=== PATIENT | female | born 1955 ===

== ENCOUNTER 2021-12-27 07:49 | Day surgery (SDC) | payer MEDICARE, OTHER, MEDICAID, SELFPAY ==
[2021-12-21 13:43] VITALS: BMI 34.7
--- NOTE | 2021-12-24 12:57 | P.CONAN_ITS ---
Documented by User: Lupe Guzman NP 12/24/21 12:58 HPI - Anesthesia Eval Consult details Narrative: 66yo F for Right Cataract Extraction IOL Insertion PCP cleared No previous cataract on record [facility] Past Medical History Medical History (Updated 12/27/21 @ 09:00 by Majo Anthony RN) Adrenal adenoma Arthritis Bilateral cataracts Bursitis Chronic pain syndrome CTS (carpal tunnel syndrome) Diabetes DJD (degenerative joint disease) Essential tremor GERD (gastroesophageal reflux disease) Heartburn Hyperlipidemia Hypertension Meralgia paresthetica of left side Obesity BETHANIE on CPAP RLS (restless legs syndrome) Thyroid nodule Tobacco use Wears hearing aid Surgical History Surgical History History of History of esophagogastroduodenoscopy (EGD) Hx of colonoscopy Hx of laparoscopic gastric banding Hx of laparoscopic gastric banding Social History Social History Patient Tobacco Use Status: Current everyday Tobacco user Tobacco use type: Cigarette Cigarettes Per Day: 7 Use of substances other than those prescribed or required for medical reasons: No Are you DNR?: No Advance Directives: No Advance Directives Information Provided: Yes Meds Allergies Allergy/AdvReac Type Severity Reaction Status Date / Time No Known Allergies Allergy Verified 12/27/21 08:40 Home Medications Medication Instructions Recorded Confirmed Last Taken Type Trulicity 12/20/21 12/20/21 Unknown History atorvastatin 40 mg tablet 40 mg PO BEDTIME 12/20/21 12/20/21 Unknown History bupropion HCl 300 mg 24 hr tablet, 300 mg PO QAM 12/20/21 12/20/21 Unknown History extended release insulin aspart U-100 100 unit/mL unit subcut TID 12/20/21 Unknown History (3 mL) subcutaneous pen (Novolog Flexpen U-100 Insulin aspart) insulin glargine 100 unit/mL (3 unit subcut QPM 12/20/21 Unknown History mL) subcutaneous pen (Basaglar KwikPen U-100 Insulin) meloxicam 7.5 mg tablet 7.5 mg PO DAILY 12/20/21 12/20/21 Unknown History omeprazole 40 mg capsule,delayed 40 mg PO DAILY 12/20/21 12/20/21 Unknown History release pregabalin 150 mg capsule 150 mg PO BID 12/20/21 12/20/21 Unknown History quetiapine 25 mg tablet 25 mg PO DAILY 12/20/21 12/20/21 Unknown History ropinirole 1 mg tablet 1 mg PO BEDTIME 12/20/21 12/20/21 Unknown History Exam Exam Date and Time: December 24, 2021 1257 Height,Weight and Vital Signs: Height 5 ft 6.14 in Weight 98 kg Assessment and Plan Assessment Anesthesia Assessment: Chart Reviewed Documented by User: Paige Venegas MD 12/27/21 09:11 [facility] Past Medical History Medical History (Updated 12/27/21 @ 09:00 by Majo Anthony RN) Adrenal adenoma Arthritis Bilateral cataracts Bursitis Chronic pain syndrome CTS (carpal tunnel syndrome) Diabetes DJD (degenerative joint disease) Essential tremor GERD (gastroesophageal reflux disease) Heartburn Hyperlipidemia Hypertension Meralgia paresthetica of left side Obesity BETHANIE on CPAP RLS (restless legs syndrome) Thyroid nodule Tobacco use Wears hearing aid Functional capacity: independent ambulation Patient : No Family History Family history of problems with anesthesia: No Surgical History Surgical History History of History of esophagogastroduodenoscopy (EGD) Hx of colonoscopy Hx of laparoscopic gastric banding Hx of laparoscopic gastric banding History of Problems with Anesthesia: No Social History Social History Patient Tobacco Use Status: Current everyday Tobacco user Tobacco use type: Cigarette Cigarettes Per Day: 7 Use of substances other than those prescribed or required for medical reasons: No Are you DNR?: No Advance Directives: No Advance Directives Information Provided: Yes Meds Allergies Allergy/AdvReac Type Severity Reaction Status Date / Time No Known Allergies Allergy Verified 12/27/21 08:40 Home Medications Medication Instructions Recorded Confirmed Last Taken Type Trulicity 12/20/21 12/20/21 Unknown History atorvastatin 40 mg tablet 40 mg PO BEDTIME 12/20/21 12/20/21 Unknown History bupropion HCl 300 mg 24 hr tablet, 300 mg PO QAM 12/20/21 12/20/21 Unknown History extended release insulin aspart U-100 100 unit/mL unit subcut TID 12/20/21 Unknown History (3 mL) subcutaneous pen (Novolog Flexpen U-100 Insulin aspart) insulin glargine 100 unit/mL (3 unit subcut QPM 12/20/21 Unknown History mL) subcutaneous pen (Basaglar KwikPen U-100 Insulin) meloxicam 7.5 mg tablet 7.5 mg PO DAILY 12/20/21 12/20/21 Unknown History omeprazole 40 mg capsule,delayed 40 mg PO DAILY 12/20/21 12/20/21 Unknown History release pregabalin 150 mg capsule 150 mg PO BID 12/20/21 12/20/21 Unknown History quetiapine 25 mg tablet 25 mg PO DAILY 12/20/21 12/20/21 Unknown History ropinirole 1 mg tablet 1 mg PO BEDTIME 12/20/21 12/20/21 Unknown History Exam Airway Mallampati Class: II TM Dist: >3cm Neck ROM: Full Heart: RRR Lungs: CTA Assessment and Plan Final Anesthetic Review Family History of Problems with Anesthesia: No History of Problems with Anesthesia: No ASA Class: II Final Preanesthetic Review: No Changes in Pt Med Stat, Meds/Allgs Chart Reviewed, Consent Obtained/Reviewed and Anes Risks/Benef Reviewed Patient Risk: Low Procedure Risk: Low Anesthetic Plan Anesthetic Plan: MAC: Disposition: Standard PACU
[2021-12-27 08:47] VITALS: BP 137/63; PULSE 62; RESP 16; TEMP 36.1; O2SAT 99
[2021-12-27] MEDS: Tetracaine HCl/PF 0.5% Oph Sol 4 ML DROPS 1 DROP EYE-RIGHT (08:47)
[2021-12-27 08:48] LABS: Glucose, Whole Blood 133 mg/dL (60-115)
[2021-12-27] MEDS: Cyclopentolate 1 % Ophth Sol 2 ML DRPBTL 1 DROP EYE-RIGHT ×3 (08:50→09:04)
[2021-12-27] MEDS: Tropicamide 1 % Ophth Sol 3 ML BTL 1 DROP EYE-RIGHT ×3 (08:52→09:07)
[2021-12-27] MEDS: Phenylephrine HCL 2.5% Oph SoL 2 ML BOTTLE 1 DROP EYE-RIGHT ×3 (08:54→09:09)
--- NOTE | 2021-12-27 09:03 | HO.PNOPHT ---
Ophthalmology Procedure Procedure Date of Service: 12/27/21 Ophthalmology Viscoelastic: Healangel [place] Dual Pack Pro Ophthalmology Lenses: TECNIS [id number] (19.5) Procedure Notes: PREOPERATIVE DIAGNOSIS: Decreased visual acuity right eye secondary to cataract POSTOPERATIVE DIAGNOSIS: Same PROCEDURE: Right cataract extraction with intraocular lens insertion SURGEON: Robin Jolly M.D. ANESTHESIA: Topical/MAC ESTIMATED BLOOD LOSS: None COMPLICATIONS: None After obtaining informed consent, the patient was brought to the operating room suite and placed in the supine position. After adequate sedation per anesthesia, topical drops of Tetracaine were given to the right eye. The eye was then prepped and draped in the usual sterile fashion. The operating room microscope was then positioned over the operative eye and a lid speculum placed. A paracentesis was created. Viscoelastic was then instilled into the anterior chamber. A three plane incision was then created temporally, utilizing a 2.85 mm keratome. Capsulotomy forceps were then utilized to create a circular tear capsulotomy. Hydrodissection and hydrodelineation were carried out until adequate mobilization of the nucleus occurred. Phacoemulsification was then utilized to remove the dense central nucleus followed by removal of the cortical material utilizing the automated aspiration irrigation unit. Viscoelastic was instilled into the posterior capsular bag followed by placement of a posterior chamber intraocular lens without difficulty. The residual Viscoelastic was then removed utilizing the automated IA machine. The wound was checked and found to be watertight. The patient tolerated the procedure well and the lid speculum was removed. Intracameral injection of Vigamox 0.1 mL followed by a subtenon injection of Kenalog-40 0.2 mL were administered. The patient will be seen in the a.m.
[2021-12-27] MEDS: Lactated Ringers 500 ML 50 ML IV (09:11)
--- NOTE | 2021-12-27 10:55 | P.CONAN_ITS ---
[facility] Past Medical History Medical History (Updated 12/27/21 @ 09:00 by Majo Anthony RN) Adrenal adenoma Arthritis Bilateral cataracts Bursitis Chronic pain syndrome CTS (carpal tunnel syndrome) Diabetes DJD (degenerative joint disease) Essential tremor GERD (gastroesophageal reflux disease) Heartburn Hyperlipidemia Hypertension Meralgia paresthetica of left side Obesity BETHANIE on CPAP RLS (restless legs syndrome) Thyroid nodule Tobacco use Wears hearing aid Functional capacity: independent ambulation Patient : No Family History Family history of problems with anesthesia: No Surgical History Surgical History History of History of esophagogastroduodenoscopy (EGD) Hx of colonoscopy Hx of laparoscopic gastric banding Hx of laparoscopic gastric banding History of Problems with Anesthesia: No Social History Social History Patient Tobacco Use Status: Current everyday Tobacco user Tobacco use type: Cigarette Cigarettes Per Day: 7 Use of substances other than those prescribed or required for medical reasons: No Are you DNR?: No Advance Directives: No Advance Directives Information Provided: Yes Patient : No Meds Allergies Allergy/AdvReac Type Severity Reaction Status Date / Time No Known Allergies Allergy Verified 12/27/21 08:40 Active Medications: Current Medications Albuterol Sulfate (Albuterol Sulfate (0.083%) 2.5 Mg/3 Ml Vial.Neb) 2.5 mg INHALE ONCE PRN PRN Reason: Shortness of Breath/Wheezing Lactated Ringer's (Lr) 500 mls @ 50 mls/hr IV .Q10H TRISHA Stop: 12/27/21 18:44 Last Admin: 12/27/21 09:11 Dose: 50 mls/hr Povidone Iodine (Povidone Iodine 5 % Ophth Soln 30 Ml Bottle) 1 appl EYE-RIGHT PREOP PRN PRN Reason: Pre-Op Surgical Implant Prophy Home Medications Medication Instructions Recorded Confirmed Last Taken Type Trulicity 12/20/21 12/20/21 Unknown History atorvastatin 40 mg tablet 40 mg PO BEDTIME 12/20/21 12/20/21 Unknown History bupropion HCl 300 mg 24 hr tablet, 300 mg PO QAM 12/20/21 12/20/21 Unknown History extended release insulin aspart U-100 100 unit/mL unit subcut TID 12/20/21 Unknown History (3 mL) subcutaneous pen (Novolog Flexpen U-100 Insulin aspart) insulin glargine 100 unit/mL (3 unit subcut QPM 12/20/21 Unknown History mL) subcutaneous pen (Basaglar KwikPen U-100 Insulin) meloxicam 7.5 mg tablet 7.5 mg PO DAILY 12/20/21 12/20/21 Unknown History omeprazole 40 mg capsule,delayed 40 mg PO DAILY 12/20/21 12/20/21 Unknown History release pregabalin 150 mg capsule 150 mg PO BID 12/20/21 12/20/21 Unknown History quetiapine 25 mg tablet 25 mg PO DAILY 12/20/21 12/20/21 Unknown History ropinirole 1 mg tablet 1 mg PO BEDTIME 12/20/21 12/20/21 Unknown History Exam Exam Date and Time: December 27, 2021 1055 Height,Weight and Vital Signs: Height 5 ft 6.14 in Weight 98 kg Last Vital Signs Temp 97.0 F 12/27/21 08:47 Pulse 62 12/27/21 08:47 Resp 16 12/27/21 08:47 BP 137/63 12/27/21 08:47 Pulse Ox 99 12/27/21 08:47 O2 Del Method 12/27/21 08:47 Pertinent Lab Results Pertinent Lab Results: Laboratory Tests 12/27/21 08:45 POC Glucose 133 H Assessment and Plan Final Anesthetic Review Family History of Problems with Anesthesia: No History of Problems with Anesthesia: No
--- NOTE | 2021-12-27 10:59 | HO.POSTANES ---
Post Anesthesia Evaluation Post Anesthesia Evaluation Vital Signs: Vital Signs Temp Pulse Resp BP Pulse Ox O2 Del Method 12/27/21 08:47 97.0 F 62 16 137/63 99 Room Air Anesthesia: Monitored Mental Status: Awake Pain Control: Satisfactory Nausea/Vomiting: None and Mild Hydration: Adequate Anesthesia-Related Issues: No Anes. Related Issues
[2021-12-27 11:05] VITALS: BP 151/73; PULSE 57; RESP 16; TEMP 36.1; O2SAT 99
== END 2021-12-27 11:08 | disposition home or self-care (01) ==
PROVIDERS: Visit Provider Ophthalmology
PROC: (CPT 66985; principal; 2021-12-27 09:20)
DX: H25.11 Age-related nuclear cataract, right eye (principal); Z83.511 Family history of glaucoma; H40.013 Open angle with borderline findings, low risk, bilateral; H54.7 Unspecified visual loss; G47.33 Obstructive sleep apnea (adult) (pediatric); E78.00 Pure hypercholesterolemia, unspecified; E11.9 Type 2 diabetes mellitus without complications; Z79.84 Long term (current) use of oral hypoglycemic drugs; Z79.899 Other long term (current) drug therapy; Z87.891 Personal history of nicotine dependence
CPT/HCPCS: 66984; 82947; J2250; J3010; J3300; V2632

== ENCOUNTER 2022-01-10 06:10 | Day surgery (SDC) | payer MEDICARE, OTHER, MEDICAID, SELFPAY ==
[2021-12-20 15:50] VITALS: BMI 34.7
--- NOTE | 2022-01-06 12:25 | MHC.SHP ---
Pre-Procedural Eval Section A Date of Service: 01/06/22 The patient is an INPATIENT: No Changes since office visit: No Cold of Flu in the past 2 weeks, No New Medical Problems, No Changes in Medication and No Patient answered all questions The History & Physical has been completed within 30 days and I have reviewed it.: Yes Section B Chief Complaint: cataract Allergies: Allergies Allergy/AdvReac Type Severity Reaction Status Date / Time No Known Allergies Allergy Verified 12/27/21 08:40 Plan Diagnosis/Plan: Unchanged I have reviewed the history and physical and performed a pertinent physical examination on my patient. No changes have occurred unless specified.
[2022-01-10] MEDS: Tetracaine HCl/PF 0.5% Oph Sol 4 ML DROPS 1 DROP EYE-LEFT (06:30)
[2022-01-10] MEDS: Lactated Ringers 500 ML 50 ML IVCONT (06:31)
[2022-01-10] MEDS: Tropicamide 1 % Ophth Sol 3 ML BTL 1 DROP EYE-LEFT ×3 (06:32→06:44)
[2022-01-10] MEDS: Cyclopentolate 1 % Ophth Sol 2 ML DRPBTL 1 DROP EYE-LEFT ×3 (06:32→06:42)
[2022-01-10] MEDS: Phenylephrine HCL 2.5% Oph SoL 2 ML BOTTLE 1 DROP EYE-LEFT ×3 (06:33→06:43)
[2022-01-10 06:38] VITALS: BP 104/62; PULSE 74; RESP 18; TEMP 36.4; O2SAT 96
[2022-01-10 06:55] LABS: Glucose, Whole Blood 142 mg/dL (60-115)
--- NOTE | 2022-01-10 07:02 | HO.ANESPROP2 ---
HPI - Anesthesia Eval Consult details Narrative: Left eye cataract IOL placement PMFSH Past Medical History Medical History (Updated 12/27/21 @ 09:00 by Majo Anthony RN) Adrenal adenoma Arthritis Bilateral cataracts Bursitis Chronic pain syndrome CTS (carpal tunnel syndrome) Diabetes DJD (degenerative joint disease) Essential tremor GERD (gastroesophageal reflux disease) Heartburn Hyperlipidemia Hypertension Meralgia paresthetica of left side Obesity BETHANIE on CPAP RLS (restless legs syndrome) Thyroid nodule Tobacco use Wears hearing aid Family History Family history of problems with anesthesia: No Surgical History Surgical History History of History of esophagogastroduodenoscopy (EGD) Hx of colonoscopy Hx of laparoscopic gastric banding Hx of laparoscopic gastric banding History of Problems with Anesthesia: No Social History Social History Patient Tobacco Use Status: Current everyday Tobacco user Tobacco use type: Cigarette Cigarettes Per Day: 7 Are you DNR?: No Advance Directives: No Advance Directives Information Provided: Yes Nutrition Risks: No Nutritional Risk Meds Allergies Allergy/AdvReac Type Severity Reaction Status Date / Time No Known Allergies Allergy Verified 12/27/21 08:40 Active Medications: Current Medications Lactated Ringer's (Lr) 500 mls @ 50 mls/hr IVCONT .Q10H TRISHA Last Admin: 01/10/22 06:31 Dose: 50 mls/hr Povidone Iodine (Povidone Iodine 5 % Ophth Soln 30 Ml Bottle) 1 appl EYE-LEFT PREOP PRN PRN Reason: Pre-Op Surgical Implant Prophy Home Medications Medication Instructions Recorded Confirmed Last Taken Type Trulicity 12/20/21 12/20/21 Unknown History atorvastatin 40 mg tablet 40 mg PO BEDTIME 12/20/21 12/20/21 Unknown History bupropion HCl 300 mg 24 hr tablet, 300 mg PO QAM 12/20/21 12/20/21 Unknown History extended release insulin aspart U-100 100 unit/mL unit subcut TID 12/20/21 Unknown History (3 mL) subcutaneous pen (Novolog Flexpen U-100 Insulin aspart) insulin glargine 100 unit/mL (3 unit subcut QPM 12/20/21 Unknown History mL) subcutaneous pen (Basaglar KwikPen U-100 Insulin) meloxicam 7.5 mg tablet 7.5 mg PO DAILY 12/20/21 12/20/21 Unknown History omeprazole 40 mg capsule,delayed 40 mg PO DAILY 12/20/21 12/20/21 Unknown History release pregabalin 150 mg capsule 150 mg PO BID 12/20/21 12/20/21 Unknown History quetiapine 25 mg tablet 25 mg PO DAILY 12/20/21 12/20/21 Unknown History ropinirole 1 mg tablet 1 mg PO BEDTIME 12/20/21 12/20/21 Unknown History Exam Exam Date and Time: January 10, 2022 0702 Height,Weight and Vital Signs: Height 5 ft 6.14 in Weight 98 kg Last Vital Signs Temp 97.6 F 01/10/22 06:38 Pulse 74 01/10/22 06:38 Resp 18 01/10/22 06:38 BP 104/62 01/10/22 06:38 Pulse Ox 96 01/10/22 06:38 O2 Del Method 01/10/22 06:38 Pertinent Lab Results Pertinent Lab Results: Laboratory Tests 01/10/22 06:50 POC Glucose 142 H Airway Mallampati Class: III TM Dist: >3cm Neck ROM: Full Loose/Missing/Broken Teeth: No (denies any loose teeth, crowns or dentures) Heart: [id number] Lungs: cta b/l Assessment and Plan Assessment Anesthesia Assessment: Anesthesia Plan Discussed and Chart Reviewed Final Anesthetic Review Family History of Problems with Anesthesia: No History of Problems with Anesthesia: No NPO: Yes ASA Class: III Final Preanesthetic Review: No Changes in Pt Med Stat, Meds/Allgs Chart Reviewed, Consent Obtained/Reviewed and Anes Risks/Benef Reviewed Patient Risk: Intermediate Procedure Risk: Low Assessment/Block/Sedation in SS: Assess/Block/Sedation-SS Anesthetic Plan Anesthetic Plan: MAC: and Agree w/ Assess. and Plan Disposition: Standard PACU
[2022-01-10 07:50] VITALS: BP 126/65; PULSE 63; RESP 20; TEMP 36.1; O2SAT 99
--- NOTE | 2022-01-10 07:50 | HO.PNOPHT ---
Ophthalmology Procedure Procedure Date of Service: 01/10/22 Ophthalmology Viscoelastic: Healangel [place] Dual Pack Pro Ophthalmology Lenses: TECLUANA [id number] (20) Procedure Notes: PREOPERATIVE DIAGNOSIS: Decreased visual acuity left eye secondary to cataract POSTOPERATIVE DIAGNOSIS: Same PROCEDURE: Left cataract extraction with intraocular lens insertion SURGEON: Robin Jolly M.D. ANESTHESIA: Topical/MAC ESTIMATED BLOOD LOSS: None COMPLICATIONS: None After obtaining informed consent, the patient was brought to the operation room suite and placed in the supine position. After adequate sedation per anesthesia, topical drops of Tetracaine were given to the left eye. The eye was then prepped and draped in the usual sterile fashion. The operating room microscope was then positioned over the operative eye and a lid speculum placed. A paracentesis was created. Viscoelastic was then instilled into the anterior chamber. A three plane incision was then created temporally, utilizing a 2.85 mm keratome. Capsulotomy forceps were then utilized to create a circular tear capsulotomy. Hydrodissection and hydrodelineation were carried out until adequate mobilization of the nucleus occurred. Phacoemulsification was then utilized to remove the dense central nucleus followed by removal of the cortical material utilizing the automated aspiration irrigation unit. Viscoat elastic was instilled into the posterior capsular bag followed by placement of a posterior chamber intraocular lens without difficulty. The residual Viscoat elastic was then removed utilizing the automated IA machine. The wound was check and found to be watertight. The patient tolerated the procedure well and the lid speculum was removed. Intracameral injection of Vigamox 0.1 mL followed by a subtenon injection of Kenalog-40 0.2 mL were administered. The patient will be seen in the a.m.
[2022-01-10 07:56] VITALS: BP 122/67; PULSE 65; RESP 18; TEMP 36.1; O2SAT 99
== END 2022-01-10 08:05 | disposition home or self-care (01) ==
PROVIDERS: Visit Provider Ophthalmology
PROC: (CPT 66985; principal; 2022-01-10 08:00)
DX: H25.12 Age-related nuclear cataract, left eye (principal); H54.7 Unspecified visual loss; H40.013 Open angle with borderline findings, low risk, bilateral; E78.00 Pure hypercholesterolemia, unspecified; Z83.511 Family history of glaucoma; E11.9 Type 2 diabetes mellitus without complications; F32.A Depression, unspecified; G47.33 Obstructive sleep apnea (adult) (pediatric); Z99.89 Dependence on other enabling machines and devices; Z79.4 Long term (current) use of insulin; F17.210 Nicotine dependence, cigarettes, uncomplicated
CPT/HCPCS: 66984; 82947; J2250; J3300; V2632

== ENCOUNTER 2023-08-30 09:56 | Outpatient (AMB) | payer MEDICARE, OTHER, MEDICAID, SELFPAY ==
--- NOTE | 2023-08-30 10:13 | HO.NEPHOV ---
HPI HPI Comments History of Present Illness Details I had the delight of seeing Maria E with a history of hypertension. She recently had been in emergency room in [facility] for not feeling well. She also felt she has not been emptying her bladder well. She did not have any nausea, vomiting, fever, chills, rigors. She is a diabetic. She is on SHERLEY inhibitor which she has been tolerating well. She has no orthostatic symptoms. Her EKG in the past has not shown any significant left ventricular hypertrophy. She has not known to have significant proteinuria or retinopathy. She maintains good hydration and tries to avoid nonsteroidal anti-inflammatories on a regular basis. She had a CT scan recently which did not show any abnormality in the abdomen. She is trying to lose some weight. [facility] Medical History (Updated 08/30/23 @ 10:49 by Paul Warren MD) Thyroid nodule RLS (restless legs syndrome) Wears hearing aid Meralgia paresthetica of left side Bursitis Essential tremor Chronic pain syndrome CTS (carpal tunnel syndrome) Adrenal adenoma DJD (degenerative joint disease) GERD (gastroesophageal reflux disease) Tobacco use Bilateral cataracts Arthritis Heartburn Hypertension Hyperlipidemia BETHANIE on CPAP Obesity Diabetes Surgical History Hx of laparoscopic gastric banding History of History of esophagogastroduodenoscopy (EGD) Hx of colonoscopy Hx of laparoscopic gastric banding Social History Patient Tobacco Use Status: Current everyday Tobacco user Tobacco use type: Cigarette Cigarettes Per Day: 7 Vital Signs 08/30/23 10:17 Height 5 ft 6 in Weight 208 lb 2 oz BMI 33.6 BP 100/60 Blood Pressure Location Lt brachial Position Sitting Pulse 72 Pulse Source Pulse Oximeter Pulse Oximetry (%) 100 Oxygen Delivery Method Room Air Physical Exam Vital Signs: Last Vital Signs Pulse 72 08/30/23 10:17 BP 100/60 08/30/23 10:17 Pulse Ox 100 08/30/23 10:17 Oxygen Delivery Method Room Air 08/30/23 10:17 BMI result Body Mass Index 33.6 Const General: comfortable and no acute distress Orientation/consciousness: patient oriented x3 HEENT Head: Yes normocephalic Mouth: Normal oral and palatal mucosa present Eyes EOM: EOMs intact bilaterally Neck Neck: Yes supple Resp Auscultation: clear to auscultation bilaterally Cardio Jugular venous distension: no JVD Rate: regular rate GI Palpation (GI): Soft to palpation Auscultation: normal bowel sounds General: Yes no CVA tenderness Back/Spine/Pelvis Back: no CVA tenderness Skin General skin exam: no rashes or lesions noted Neuro General: patient oriented x3 and moves all extremities Extrem General: Yes no pedal edema Assessment & Plan Assessment & Plan (1) Incomplete emptying of bladder: Code(s): R33.9 - Retention of urine, unspecified (2) Hypertension: Code(s): I10 - Essential (primary) hypertension Qualifiers: Hypertension type: primary hypertension Qualified Code(s): I10 - Essential (primary) hypertension Plan Maria E has longstanding hypertension. Her blood pressure is currently well controlled. She has a diabetic. She is on SHERLEY-inhibitor. She is not known to have significant left ventricular hypertrophy or proteinuria. She is compliant with her medications. Recent imaging of the abdomen did not show any obvious significant abnormality. She has been having difficulty emptying the bladder. I took the liberty to refer her to a urologist for further evaluation. Her last urinalysis was unremarkable. If her blood pressure is labile I plan to increase her lisinopril to 12.5 mg daily. I did not make any medication changes today. All recent lab and radiological data reviewed. Answered all questions. Follow-up appointment given. Orders: Referrals Urology Referral R33.9 - Retention of urine, unspecified Coding Level of Care Code Est Pt Level 4 (62132) Diagnoses Incomplete emptying of bladder R33.9 Primary hypertension I10 Hypertension type: primary hypertension Results Reviewed Nephrology Results: No Data to Display
[2023-08-30 10:17] VITALS: BP 100/60; PULSE 72; O2SAT 100; BMI 33.6
== END 2023-08-30 10:44 | disposition home or self-care (01) ==
PROVIDERS: PCP Internal Medicine; Visit Provider Internal Medicine Nephrology
DX: R33.9 Retention of urine, unspecified (principal); I10 Essential (primary) hypertension
CPT/HCPCS: 99214

== ENCOUNTER → 2023-08-30 09:56 | Outpatient (BNVA) | payer MEDICARE, OTHER, MEDICAID, SELFPAY | PROVIDERS: PCP Internal Medicine; Visit Provider Internal Medicine Nephrology | DX: R33.9 Retention of urine, unspecified (principal); I10 Essential (primary) hypertension | CPT/HCPCS: 99212 ==

== ENCOUNTER 2023-09-27 10:06 | Outpatient (AMB) | payer MEDICARE, OTHER, MEDICAID, SELFPAY ==
[2023-09-27 10:41] VITALS: BP 108/60; PULSE 67; O2SAT 97; BMI 33.4
--- NOTE | 2023-09-27 10:41 | HO.NEPHOV ---
Vital Signs 09/27/23 10:41 Height 5 ft 6 in Weight 207 lb 4 oz BMI 33.4 BP 108/60 Blood Pressure Location Rt brachial Position Sitting Pulse 67 Pulse Source Pulse Oximeter Pulse Oximetry (%) 97 Oxygen Delivery Method Room Air Intake Visit Reasons: Incomplete emptying of bladder/ 1 MO FU Security Services Specialist Required: No Accompanied by: Self / Same As Patient Allergies No Known Allergies Allergy (Verified 09/27/23 10:45) HPI Comments Details: I had the delight of seeing Maria E with a history of hypertension. She does not have any nausea, vomiting, fever, chills, rigors. She is a diabetic. She is on SHERLEY inhibitor which she has been tolerating well. She has no orthostatic symptoms. Her EKG in the past has not shown any significant left ventricular hypertrophy. She has not known to have significant proteinuria or retinopathy. She maintains good hydration and tries to avoid nonsteroidal anti-inflammatories on a regular basis. She had a CT scan recently which did not show any abnormality in the abdomen. She is trying to lose some weight. She also has history of adrenal adenoma which had been non functioning. She was concerned about renal disorders given history of excessive nonsteroidal anti inflammatory medications she has taken as well as strong family history of ESRD(2 brothers and mother). She had cystoscopy in the past and was negative as per the patient. [facility], [facility] Medical History (Updated 08/30/23 @ 10:49 by Paul Warren MD) Thyroid nodule RLS (restless legs syndrome) Wears hearing aid Meralgia paresthetica of left side Bursitis Essential tremor Chronic pain syndrome CTS (carpal tunnel syndrome) Adrenal adenoma DJD (degenerative joint disease) GERD (gastroesophageal reflux disease) Tobacco use Bilateral cataracts Arthritis Heartburn Hypertension Hyperlipidemia BETHANIE on CPAP Obesity Diabetes Surgical History Hx of laparoscopic gastric banding History of History of esophagogastroduodenoscopy (EGD) Hx of colonoscopy Hx of laparoscopic gastric banding Social History Patient Tobacco Use Status: Current everyday Tobacco user Tobacco use type: Cigarette Cigarettes Per Day: 7 Physical Exam Vital Signs: Last Vital Signs Pulse 67 09/27/23 10:41 BP 108/60 09/27/23 10:41 Pulse Ox 97 09/27/23 10:41 Oxygen Delivery Method Room Air 09/27/23 10:41 BMI result Body Mass Index 33.4 Const General: comfortable and no acute distress Orientation/consciousness: patient oriented x3 HEENT Head: Yes normocephalic Mouth: Normal oral and palatal mucosa present Eyes EOM: EOMs intact bilaterally Neck Neck: Yes supple Resp Auscultation: clear to auscultation bilaterally Cardio Jugular venous distension: no JVD Rate: regular rate GI Palpation (GI): Soft to palpation Auscultation: normal bowel sounds General: Yes no CVA tenderness Back/Spine/Pelvis Back: no CVA tenderness Skin General skin exam: no rashes or lesions noted Neuro General: patient oriented x3 and moves all extremities Results Reviewed Nephrology Results: No Data to Display Assessment & Plan Assessment & Plan (1) Hypertension: Code(s): I10 - Essential (primary) hypertension Category: Medical Qualifiers: Hypertension type: primary hypertension Qualified Code(s): I10 - Essential (primary) hypertension Plan: Maria E has longstanding hypertension. Her blood pressure is currently well controlled. She has a diabetic. She is on SHERLEY-inhibitor. She is not known to have significant left ventricular hypertrophy or proteinuria. She is compliant with her medications. Recent imaging of the abdomen did not show any obvious significant abnormality. She has been having difficulty emptying the bladder. I took the liberty to refer her to a urologist for further evaluation. Her last urinalysis was unremarkable. I did not make any medication changes today. Answered all questions. Follow-up appointment given. Orders: Orders Blood Urea Nitrogen Today I10 - Essential (primary) hypertension Protein Creatinine Ratio, Ur Today I10 - Essential (primary) hypertension Creatinine Today I10 - Essential (primary) hypertension Electrolytes Today I10 - Essential (primary) hypertension Coding Level of Care Code Est Pt Level 4 (97091) Diagnoses Primary hypertension I10 Hypertension type: primary hypertension
== END 2023-09-27 10:57 | disposition home or self-care (01) ==
PROVIDERS: PCP Internal Medicine; Visit Provider Internal Medicine Nephrology
DX: I10 Essential (primary) hypertension (principal)
CPT/HCPCS: 99214

== ENCOUNTER → 2023-09-27 10:06 | Outpatient (BNVA) | payer MEDICARE, OTHER, MEDICAID, SELFPAY | PROVIDERS: PCP Internal Medicine; Visit Provider Internal Medicine Nephrology | DX: I10 Essential (primary) hypertension (principal) | CPT/HCPCS: 99212 ==

== ENCOUNTER 2023-10-26 09:55 | Outpatient (AMB) | payer MEDICARE, OTHER, MEDICAID, SELFPAY ==
--- NOTE | 2023-10-26 10:01 | MHC.OFFVIS ---
Intake Visit Reasons: feeling of incomplete bladder emptying Intake Note: New Patient is present for Urinary Retention/ Hx of Adrenal Adenoma Antibiotic Allergies: None Patient states she has pain when she gets the urge to urinate. She reports she does not fully empty her bladder she has to push really hard to attempt to empty bladder. Denies no history of UTI or Hematuria PVR: 0ML Allergies No Known Allergies Allergy (Verified 10/26/23 10:03) HPI Comments Details: Maria E is a pleasant female. She is a patient of Dr. Mast. She has seen for the following urologic conditions - urinary urgency and frequency - slow emptying - background of insulin-dependent diabetes Reports primarily symptoms of urgency and frequency Thinks her bladder emptying slow Symptoms consistent with form of diabetic neuropathy - longstanding diabetic since 1999, insulin use since 2004 - has symptoms of gastroparesis with constipation indicative of diabetic induced GI dysfunction Trial tadalafil daily for bladder stability Plan urodynamics for formal assessment Follow-up with Dr. Leung after [facility] Medical History (Updated 10/26/23 @ 10:19 by Jordan Patterson MD) Thyroid nodule RLS (restless legs syndrome) Wears hearing aid Meralgia paresthetica of left side Bursitis Essential tremor Chronic pain syndrome CTS (carpal tunnel syndrome) Adrenal adenoma DJD (degenerative joint disease) GERD (gastroesophageal reflux disease) Tobacco use Bilateral cataracts Arthritis Heartburn Hypertension Hyperlipidemia BETHANIE on CPAP Obesity Diabetes Surgical History Hx of laparoscopic gastric banding History of History of esophagogastroduodenoscopy (EGD) Hx of colonoscopy Hx of laparoscopic gastric banding Social History Patient Tobacco Use Status: Current everyday Tobacco user Tobacco use type: Cigarette Cigarettes Per Day: 7 Review of Systems Const Denies chills and Denies fever(s) Card Reports no additional complaints and Denies syncope Resp Denies cough GI Denies abdominal pain and Denies heartburn Reports as per HPI and Denies change in libido Neuro Denies syncope Psych Denies change in libido Endo Denies change in libido Physical Exam Const General: cooperative, healthy appearing, comfortable and no acute distress Orientation/consciousness: patient oriented x3 HEENT Face and sinus: Yes normal facial exam Mouth: moist mucous membranes Neck Neck: Yes normal visual inspection, Yes full ROM and Yes trachea midline Chest Chest palpation & inspection: normal inspection of the chest Resp Effort & Inspection: normal respiratory effort, able to speak in complete sentences and no respiratory distress GI Inspection: Yes normal to inspection Back/Spine/Pelvis Cervical Spine: normal cervical lordosis Thoracic/Lumbar Spine: thoracic and lumbar spine normal to inspection Skin General skin exam: no rashes or lesions noted Neuro General: patient oriented x3, gait normal, tone normal and moves all extremities Extrem General: Yes normal to inspection and Yes capillary refill normal Office Procedures Post Void Residual Post Residual Void Post Void Residual (PVR): 0 26597-Wzlw Void Residual by ultrasound Assessment & Plan Assessment & Plan (1) Urinary urgency: Code(s): R39.15 - Urgency of urination Category: Medical (2) Urinary frequency: Code(s): R35.0 - Frequency of micturition Category: Medical Plan Trial Cialis Urodynamic follow-up Orders: Orders AMB Post Void Residual by ultrasound Today R33.9 - Retention of urine, unspecified Patient Instructions: Imaging studies, laboratory and physical exam results were discussed and reviewed in detail. No major barriers to patient understanding were identified. An opportunity to ask questions regarding the treatment plan was provided. All questions were answered. The patient expressed understanding and agreement with the above treatment plan. The patient is aware they should contact our office by phone for worsening of their current condition or the appearance of new urologic symptoms. Compliance is encouraged with any medications and followup testing that is ordered. It is a privilege to participate in the urologic care of your patient. If you have any questions or concerns regarding treatment for the above conditions, or other urologic issues, please do not hesitate to contact me. The office telephone contact is [phone]. This note is constructed using voice recognition software. While every effort has been made to ensure accuracy pesticide use medical coordinator errors may have been included. Yours sincerely, Dr Jordan aPtterson MD, [facility] - Urology Providers of Expert, Compassionate Care for the Genitourinary System Coding Level of Care Code New Pt Level 4 (82358) Diagnoses Urinary urgency R39.15 Urinary frequency R35.0 CPT Codes Post Residual Void - PVR CPT Code: 52435-Edur Void Residual by ultrasound ([id number])
== END 2023-10-26 10:21 | disposition home or self-care (01) ==
PROVIDERS: PCP Internal Medicine; Visit Provider Urology
DX: R39.15 Urgency of urination (principal); R35.0 Frequency of micturition
CPT/HCPCS: 99204

== ENCOUNTER → 2023-10-26 09:55 | Outpatient (BNVA) | payer MEDICARE, OTHER, MEDICAID, SELFPAY | PROVIDERS: PCP Internal Medicine; Visit Provider Urology | DX: R39.15 Urgency of urination (principal); R35.0 Frequency of micturition | CPT/HCPCS: 51798; 99202 ==

== ENCOUNTER 2023-12-06 17:17 | Outpatient (REF) | payer MEDICARE, OTHER, MEDICAID, SELFPAY | END 2023-12-06 17:18 | disposition home or self-care (01) | LOC: HO.LNP 17:17 | PROVIDERS: Visit Provider Urology | DX: R39.15 Urgency of urination (principal); R35.0 Frequency of micturition; R33.9 Retention of urine, unspecified | CPT/HCPCS: 87086 ==

== ENCOUNTER 2023-12-15 08:06 | Outpatient (AMB) | payer MEDICARE, OTHER, MEDICAID, SELFPAY ==
--- NOTE | 2023-12-15 08:35 | MHC.OFFVIS ---
Intake Visit Reasons: Urodynamics Intake Note: Maria E is a 68 year old female who presents to the office today for a urodynamics study test. Allergies No Known Allergies Allergy (Verified 02/21/24 10:41) HPI Comments Details: 12/15/23--Maria E is here for urodynamics. The patient has been followed by Dr Patterson, was prescribed Cialis. The patient has complaints of urinary urgency Interpretation: During the filling phase sensory urgency was noted, strong urge was noted at 173 mL bladder capacity was less than average, the patient felt that she was at capacity at 224 mL Findings consistent with less than average functional bladder capacity, senory urgency EMG- Appropriate changes in the waveforms were noted through out the study. Discussed treatment options to include pelvic floor PT, Botox, neuromodulation. Review of chart: 10/26/23--Maria E is a pleasant female. She is a patient of Dr. Mast. She has seen for the following urologic conditions - urinary urgency and frequency - slow emptying - background of insulin-dependent diabetes Reports primarily symptoms of urgency and frequency Thinks her bladder emptying slow Symptoms consistent with form of diabetic neuropathy - longstanding diabetic since 1999, insulin use since 2004 - has symptoms of gastroparesis with constipation indicative of diabetic induced GI dysfunction Trial tadalafil daily for bladder stability Plan urodynamics for formal assessment Follow-up with Dr. Landrum after [facility] Medical History Thyroid nodule RLS (restless legs syndrome) Wears hearing aid Meralgia paresthetica of left side Bursitis Essential tremor Chronic pain syndrome CTS (carpal tunnel syndrome) Adrenal adenoma DJD (degenerative joint disease) GERD (gastroesophageal reflux disease) Tobacco use Bilateral cataracts Arthritis Heartburn Hypertension Hyperlipidemia BETHANIE on CPAP Obesity Diabetes Surgical History Hx of laparoscopic gastric banding History of History of esophagogastroduodenoscopy (EGD) Hx of colonoscopy Hx of laparoscopic gastric banding Social History Patient Tobacco Use Status: Current everyday Tobacco user Tobacco use type: Cigarette Cigarettes Per Day: 7 Review of Systems Const All systems reviewed & are unremarkable except as noted in HPI and below Reports no additional complaints Eyes Reports no additional complaints ENT Reports no additional complaints Card Reports no additional complaints Resp Reports no additional complaints GI Reports no additional complaints Reports as per HPI Musc Reports no additional complaints Skin/Breast Reports system reviewed and no additional complaints, except as documented Neuro Reports no additional complaints Psych Reports no additional complaints Endo Reports no additional complaints Colin/Lymph Reports no additional complaints Aller/Immun Reports no additional complaints Office Procedures Urodynamic Studies Consent Discussed risk and benefit or proposed procedure with the patient. Information consent for procedure given to the patient. Discussed technical aspects, risks, benefits and alternatives in full. Addressed all of the patient's questions and concerns regarding the procedure. The patient demonstrated knowledge and understanding. They wish to proceed with this procedure. Preparation The patient was prepped in the usual manner. A obstetric assistant was present and in the room. Genitalia was prepped with betadine solution in a sterile manner. Procedure Complex Uroflow Complex uroflow performed by: Kaia Miranda Maximum urinary flow rate (mL/second): 6.6 Voiding time (seconds): 11 Voided volume (mL): 58 Residual urine (mL): minimal Cystometrogram First sensation at (mL): 91 mL First desire at (mL): 133 mL Strong desire to void occured at (mL): 173 mL Strong desire detrussor pressure (cm H2O): 4.9 Maximum fill (mL): 224 mL Voided with max detrussor pressure of (cm H2O): 40 Maximum flow rate (mL/second): 7.9 mL/s 15882-Jggwllnishgrws w/ PHYSICAL SECURITY ENGINEER 89947-Hvjeljx-Fjiymlmldvtv First 05105-Xrnq/Urinary Muscle Study 35414-Anniu-Dntdnlvja Pressure Test Procedure code (CPT) selection complete Office Meds nitrofurantoin monohydrate/macrocrystals 100 mg capsule Performing Provider: Kaia Miranda MD [place] [facility] Administered by: Bishop Mckee LPN on 12/15/23 08:47 Dose Route Admin Location Dispensed Lot Number Expiration Date NDC [employer] Librarian 100 mg PO 1 cap Assessment & Plan Assessment & Plan (1) Urinary urgency: Code(s): R39.15 - Urgency of urination Category: Medical (2) Urinary frequency: Code(s): R35.0 - Frequency of micturition Category: Medical Plan treatment options to include pelvic floor PT, Botox, neuromodulation. Orders: Orders AMB Urodynamics Studies 12/15/23 R35.0 - Frequency of micturition, R39.15 - Urgency of urination, R33.9 - Retention of urine, unspecified Coding Level of Care Code Procedure Only Diagnoses Urinary urgency R39.15 Urinary frequency R35.0 CPT Codes Urodynamic Studies - CPT: 53191-Mqkygyzzdbnvyv w/ PHYSICAL SECURITY ENGINEER ([id number]) Urodynamic Studies - CPT: 57502-Bdumhyl-Qfbltefkbfal First ([id number]) Urodynamic Studies - CPT: 45621-Ohok/Urinary Muscle Study ([id number]) Urodynamic Studies - CPT: 59038-Kxwtx-Lezcebfxe Pressure Test ([id number])
== END 2023-12-15 09:42 | disposition home or self-care (01) ==
PROVIDERS: PCP Internal Medicine; Visit Provider Urology
DX: R35.0 Frequency of micturition (principal); R39.15 Urgency of urination; R33.9 Retention of urine, unspecified
CPT/HCPCS: 51728; 51741; 51784; 51797

== ENCOUNTER → 2023-12-15 08:06 | Outpatient (BNVA) | payer MEDICARE, OTHER, MEDICAID, SELFPAY | PROVIDERS: PCP Internal Medicine; Visit Provider Urology | DX: R39.15 Urgency of urination (principal); R35.0 Frequency of micturition | CPT/HCPCS: 51728; 51741; 51784; 51797 ==

== ENCOUNTER 2024-02-21 10:31 | Outpatient (AMB) | payer MEDICARE, OTHER, MEDICAID, SELFPAY ==
[2024-02-21 10:39] VITALS: BP 138/60; PULSE 64; O2SAT 98; BMI 33.3
--- NOTE | 2024-02-21 10:39 | HO.NEPHOV_ITS ---
Vital Signs 02/21/24 10:39 Height 5 ft 6 in Weight 206 lb 4 oz BMI 33.3 BP 138/60 Blood Pressure Location Rt brachial Position Sitting Pulse 64 Pulse Source Pulse Oximeter Pulse Oximetry (%) 98 Oxygen Delivery Method Room Air Intake Visit Reasons: 5 mon follow up- Conf Family Service Assistant Required: No Accompanied by: Self / Same As Patient Allergies No Known Allergies Allergy (Verified 02/21/24 10:41) HPI Comments Details: I had the delight of seeing Maria E with a history of hypertension. She does not have any nausea, vomiting, fever, chills, rigors. She is a diabetic. She is on SHERLEY inhibitor which she has been tolerating well. She recently had acute bronchitis. She has no orthostatic symptoms. Her EKG in the past has not shown any significant left ventricular hypertrophy. She has not known to have significant proteinuria or retinopathy. She maintains good hydration and tries to avoid nonsteroidal anti-inflammatories on a regular basis. She is trying to lose some weight. She also has history of adrenal adenoma which had been non functioning. She has strong family history of ESRD(2 brothers and mother). She had cystoscopy in the past and was negative as per the patient. [facility] Medical History Thyroid nodule RLS (restless legs syndrome) Wears hearing aid Meralgia paresthetica of left side Bursitis Essential tremor Chronic pain syndrome CTS (carpal tunnel syndrome) Adrenal adenoma DJD (degenerative joint disease) GERD (gastroesophageal reflux disease) Tobacco use Bilateral cataracts Arthritis Heartburn Hypertension Hyperlipidemia BETHANIE on CPAP Obesity Diabetes Surgical History Hx of laparoscopic gastric banding History of History of esophagogastroduodenoscopy (EGD) Hx of colonoscopy Hx of laparoscopic gastric banding Social History Patient Tobacco Use Status: Current everyday Tobacco user Tobacco use type: Cigarette Cigarettes Per Day: 7 Physical Exam Vital Signs: Last Vital Signs Pulse 64 02/21/24 10:39 BP 138/60 02/21/24 10:39 Pulse Ox 98 02/21/24 10:39 Oxygen Delivery Method Room Air 02/21/24 10:39 BMI result Body Mass Index 33.3 Const General: comfortable and no acute distress Orientation/consciousness: patient oriented x3 HEENT Head: Yes normocephalic Mouth: Normal oral and palatal mucosa present Eyes EOM: EOMs intact bilaterally Neck Neck: Yes supple Resp Auscultation: clear to auscultation bilaterally Cardio Jugular venous distension: no JVD Rate: regular rate GI Palpation (GI): Soft to palpation Auscultation: normal bowel sounds General: Yes no CVA tenderness Back/Spine/Pelvis Back: no CVA tenderness Skin General skin exam: no rashes or lesions noted Neuro General: patient oriented x3 and moves all extremities Extrem General: Yes no pedal edema Results Reviewed Nephrology Results: No Data to Display Assessment & Plan Assessment & Plan (1) Hypertension: Code(s): I10 - Essential (primary) hypertension Category: Medical Qualifiers: Hypertension type: primary hypertension Qualified Code(s): I10 - Essential (primary) hypertension Plan Maria E has longstanding hypertension. Her blood pressure is currently well controlled. She has a diabetic. She is on SHERLEY-inhibitor. She is not known to have significant left ventricular hypertrophy or proteinuria. She is compliant with her medications. Her last urinalysis was unremarkable. She is a great candidate for SGLT2 i. I did not make any medication changes today. Answered all questions. Follow-up appointment given Orders: Orders Protein Creatinine Ratio, Ur Today I10 - Essential (primary) hypertension Creatinine Today I10 - Essential (primary) hypertension Blood Urea Nitrogen Today I10 - Essential (primary) hypertension Electrolytes Today I10 - Essential (primary) hypertension Coding Level of Care Code Est Pt Level 4 (69320) Diagnoses Primary hypertension I10 Hypertension type: primary hypertension
== END 2024-02-21 11:17 | disposition home or self-care (01) ==
PROVIDERS: PCP Internal Medicine; Visit Provider Internal Medicine Nephrology
DX: I10 Essential (primary) hypertension (principal)
CPT/HCPCS: 99213

== ENCOUNTER → 2024-02-21 10:31 | Outpatient (BNVA) | payer MEDICARE, OTHER, MEDICAID, SELFPAY | PROVIDERS: PCP Internal Medicine; Visit Provider Internal Medicine Nephrology | DX: I10 Essential (primary) hypertension (principal); D35.00 Benign neoplasm of unspecified adrenal gland; Z84.1 Family history of disorders of kidney and ureter | CPT/HCPCS: 99212 ==

== ENCOUNTER 2024-08-15 09:19 | Outpatient (REF) | payer MEDICARE, OTHER, MEDICAID, SELFPAY ==
--- OUTSIDE RECORDS SUMMARY | 2024-08-15 09:48 | XMS_ITS ---
Author Organization [facility] [place] Address [address] [place] [address] Care Team Providers Care Nurse Practical Name Role Phone Kenzie CAZARES, Rosa Primary Care Provider Blaise Abbott Unavailable [phone] REASON FOR VISIT Painful nail(s) aggrevated by shoes and causing difficulty standing/walking. Encounters Encounter Location Date Provider Diagnosis [facility] [address] [address] 12/15/2023 Blaise Bunch Ingrowing nail L60.0 ; Tinea unguium B35.1 ; Pain in right toe(s) M79.674 ; Pain in left toe(s) M79.675 and Type 2 diabetes mellitus with diabetic polyneuropathy E11.42 Assessments Encounter Date Diagnosis (ICD Code) Assessment Notes Treatment Notes Treatment Clinical Notes Section Notes 12/15/2023 Ingrowing nail (ICD-10 - L60.0) 12/15/2023 Tinea unguium (ICD-10 - B35.1) 12/15/2023 Pain in right toe(s) (ICD-10 - M79.674) 12/15/2023 Pain in left toe(s) (ICD-10 - M79.675) 12/15/2023 Type 2 diabetes mellitus with diabetic polyneuropathy (ICD-10 - E11.42) Plan Of Treatment Next Appt Details Follow Up: 3 Months, Reason: Provider Name:Alana paz, 08/23/2024 10:00:00 AM, [address] [address], [place], [address], Procedure Notes * Category Sub-Category Detail Notes Debride Nail 6-10 Nail debridement Nail debridem ent performed extensively to reduce/remove overall nail length and girth, subungual debris, and necrotic tissue, by manual and electrical means with use of a nail nipper and/or dremel, to more viable healthy nail plate or bed tissue 6-10. Silver nitrate used for any petechial bleeding as necessary. Patient chooses, no pharmaceutical tx ([id number]) Keratoma Treatment Parring or Cutting o f Benign Hyperkeratotic Lesion(s) 23808 ( >4 Lesions) - The Benign hyperkeratotic lesions, as described above were pared, and/or cut utilizing a sterile #15 blade, tissue nippers, and/or dremel Progress Notes * Maria E WOOD IDOB:[birth year] (69 yo F)Acc No.[id number]:12/15/2023 Progress Note Patient:?Maria E WOOD I Provider:?Blaise Bunch DPM :1955???Age:68 Y???Sex:Female D ate:12/15/2023 Address:[address] [place] [address], [address] [place], [place] [id number] Pcp:Rosa Espino NP Subjective: * Chief Complaints: * ???1. Painful nail(s) aggrev ated by shoes and causing difficulty standing/walking.. * HPI: ???Painful Nails:?Pt States Last PCP Visit:?Date:?08/22/2023 * ROS:?General/Constitutional:?Nausea?denies.?Vomiting?denies.?Hunger Thirst?denies.?Loss appetite?denies.?Chills?denies.?Fatigue?admits, denies.?Fever?denies.?Night Sweats?denies.?Unexplained weight loss?denies.?Ophthalmologic:?Blurred vision?denies.?Red eye?denies.?HEENTM:?Dentures?denies.?Dizziness?denies.?Glasses/contacts?denies.?Retinopathy?de nies.?Blurred/double vision?denies.?TMJ?denies.?Discharge/drainage?denies.?Implants?denies.?Hard of hearing denies.?Difficulty chewing/swallowing/speaking?denies.?Nose bleeds?denies.?Sore mouth?denies.?Swollen glands?denies.?Respiratory:?On Oxygen?denies.?Pneumonia/pleurisy?denies.?Bronchitis?denies.?Emphysema?denies.?C oughing?denies.?Cough blood?denies.?Shortness of breath?denies.?Wheezing?denies.?Cardiovascular:?Pacemaker?denies.?MVP?denies.?WPW?denies.?CHF?denies.?Heart attack?denies.?Septal defect?denies.?Rapid beat?denies.?Chest pain ?denies.?Atrial Fib.?denies.?Murmur/Palpitations?denies.?Gastrointestinal:?Hemorrhoids?denies.?Stomach/Abdominal pain?denies.?Dark blood stool?denies.?Irritable bowel ?denies.?Constipation?denies.?Diarrhea?denies.?Vomiting?denies.?Hematology:?Swelling?admits.?Bruising?denies.?Bleeding problem?denies.?Genitourinary:?Blood urine?denies.?Frequent/Painfu/urination/bladder control?denies.?Kidney stones?denies.?Infection (UTI)?denies.?Nephropathy?denies.?Musculoskeletal:?Hammertoes?denies.?Bunions?denies.?Scoliosis/kyphosis?denies.?Muscle cramps / walking?denies.?Generalized aches and pains?admits.?Weakness?denies.?Integ.:?Rodriguez?denies.?Scars?denies.?Corns/calluses?admits.?Ingrown nails?denies.?Painful nails?denies.?Rashes?denies.?Neurologic:?Difficulty sleeping?admits.?Bipolar?admits.?Brain disorder?denies.?Balance trouble?admits.?Confusion?denies.?Fainting/blackouts?denies.?Headache?denies.?Tr emors?admits.? * Medical History:? Objective: * Vitals:? * Examination: ???Neurological: ?SENSORY:?exam demonstrates. reduced vibration lower extremity, B/L, at forefoot, 5.07 monofilament test performed at plantar aspects of 5 varied sites per foot shows sensation, reduced , B/L.?Dermatologic: ?SKIN FINDINGS:? Skin exam reveals Keratotic lesion(s) located at, Medial plantar, TA, T5, Skin exam reveals Keratotic lesion(s) located at, Heel, B/L , Plantar, T1, T2, T3, T4, T6, T7, T8, T9.?Vascular: ?DP PULSES (B):? 2/4, B/L.?PT PULSES (B):? 1/4, B/L.?CAPILLARY FILL TIME:? 3 secs. per digit, B/L.?TROPHIC CONDITION-TEXTURE/ELASTICITY/TURGOR/HAIR GROWTH (B):? normal.?Nails: ?NAILS are:?Elongated, overgrown, dystrophic, lytic, greater than 3mm thick, discolored and friable with crumbly malodorous subungual debris, with dull to no pain on palpation due to neuropathy, 1-5 B/L.?Ophthalmology Referral: ?DIABETES EYE EXAM?Diabetic Retinopathy Screening:?Yes ?DIABETIC RETINOPATHY?Macular or Fundus exam:?Yes??? Assessment: * Assessment: 1.?Ingrowing nail - L60.0 (P rimary)???2.?Tinea unguium - B35.1???3.?Pain in right toe(s) - M79.674???4.?Pain in left toe(s) - M79.675???5.?Type 2 diabetes mellitus with diabetic polyneuropathy - E11.42??? Plan: * Treatment: * Procedures:?Debride Nail 6-10:?Nail debridement?Nail debridement performed extensively to reduce/remove overall nail length and girth, subungual debris, and necrotic tissue, by manual and electrical means with use of a nail nipper and/or dremel, to more viable healthy nail plate or bed tissue 6-10. Silver nitrate used for any petechial bleeding as necessary. Patient chooses, no pharmaceutical tx ([id number]).?Keratoma Treatment:?Parring or Cutting of Benign Hyperkeratotic Lesion(s)?64792 ( >4 Lesions) - The Benign hyperkeratotic lesions, as described above were pared, and/or cut utilizing a sterile #15 blade, tissue nippers, and/or dremel.? * Procedure Codes:?40668 DEBRI DE NAIL, 6 OR MORE, Modifiers: XS , 58110 TRIM SKIN LESIONS, OVER 4, Modifiers: XS * Follow Up:?3 Months * Images: * The named appointment provid er may or may not be the originator of this progress note, and it is not deemed complete until electronically signed by the appointment provider. Sign off status: Pending * Provider:?Blaise Bunch DPM Date:? 024 Generated for Tommy flowers/Bob/Olivia on:?08/15/2024 09:48 AM EDT History and Physical Notes * HPI (History of Present Illness) Category Sub-Category Detail Notes Category Not es Painful Nails Pt States Last PCP Visit: Date:: 08/22/2023 Examination Category Sub-Category Detail Notes Category Not es Neurological SENSORY: exam demonstrate s. reduced vibration lower extremity, B/L, at forefoot, 5.07 monofilament test performed at plantar aspects of 5 varied sites per foot shows sensation, reduced , B/L Dermatologic SKIN FINDINGS: Skin exam reveal s Keratotic lesion(s) located at, Medial plantar, TA, T5, Skin exam reveals Keratotic lesion(s) located at, Heel, B/L , Plantar, T1, T2, T3, T4, T6, T7, T8, T9 Ophthalmology Referral DIABETES EYE EXAM Diabeti c Retinopathy Screening:: Yes DIABETIC RETINOPATHY Macular or Fundus exam:: Adin hend[facility] DP PULSES (B): 2/4, B/L PT PULSES (B): 1/4, B/L CAPILLARY FILL TIME: 3 secs. per digit, B/L TROPHIC CONDITION-TEXTURE/ELASTICITY/TUR GOR/HAIR GROWTH (B): normal Nails NAILS are: Elongated, overg rown, dystrophic, lytic, greater than 3mm thick, discolored and friable with crumbly malodorous subungual debris, with dull to no pain on palpation due to neuropathy, 1-5 B/L
--- OUTSIDE RECORDS SUMMARY | 2024-08-15 09:48 | XMS_ITS ---
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 Name Role Phone Kenzie CAZARES, Rosa Primary Care Provider Blaise Abbott Unavailable [phone] Alana Culp Unavailable [phone] Allergies Allergen (clinical drug ingredient) Drug/Non Drug Allergy documented on EMR Reaction Allergy Type Onset Date Status ibuprofen Ibuprofen ulcers Drug Allergy Active acetaminophen Tylenol Unknown Drug Allergy Act irene Non-steroidal anti-inflammatory agent (FN) NSAIDs Mass on left Kidney Drug Allergy Active REASON FOR VISIT Pcp-03/07, Toe Irritation, At Risk Footcare Medications Medication SIG (Take, Route, Frequency, Duration) Notes Start Date End Date Status Extra Depth Orthopedic Shoes (1 Pair) with Customized Heat Molded Multidensity Innersoles (3 Pair) as directed Dx: NIDDM/Polyneuropathy (E11.42), Hammertoe Foot Deformity (M20.41,M20.42), Preulcerative Skin Lesion(s) (L85.1 04/05/2024 Active Cephalexin 500 MG 1 capsule Orally every 6 hrs for 10 day(s) Not-Taking Ciclopirox Olamine 0.77 % 1 application to affected area Externally Twice a day to effected areas on feet for 30 days Active Insulin 30 units night time Active buPROPion HCl ER (XL) Active Trulicity Not-Taking Simvastatin Active Extra Depth Diabetic Shoes with 3 Pair Custom heat-molded multi-density innersoles for 1 year Dx: Active Gabapentin 300 MG 1 capsule Orally Onc e a day for 30 day(s) Not-Taking Ozempic Active Social History Tobacco Use: Social History Observation Description Date Details (start date - stop date) Former Smoker NA - NA Tobacco Use/Smoking Question Answer Notes Are you a: former smoker When did you stop smoking? 2010 Additional Findings: Tobacco Non-User Current no n-smoker Tobacco use other than smoking: Question Answer Notes Are you an other tobacco user? No Problems Problem Type SNOMED Code ICD Code Onset Dates Problem Status W/U Status Risk Notes Problem Acquired hammer toe of right foot (7257942292780348 ) Other hammer toe(s) (acquired), right foot (M20.41) Active confirmed Problem Acquired hammer toe of left foot (2529005692131169 ) Other hammer toe(s) (acquired), left foot (M20.42) Active confirmed Problem Polyneuropathy due to diabetes mellitus type I (997738770) Type 1 diabetes mellitus with diabetic polyneuropathy (E10.42) Active confirmed Vital Signs Height 5ft6in in 04/05/2024 Weight 204 lbs 04/05/2024 BMI 32.92 kg/m2 04/05/2024 Procedures Procedure Date Ordered Date Performed Result Body Sit e 71156-RQDVNNE NAIL, 6 OR MORE 04/05/2024 N/A 30365-NHWU SKIN LESIONS, 2 TO 4 04/05/2024 N/A Encounters Encounter Location Date Provider Diagnosis [facility] [address] [address] 04/05/2024 Alana Robbi Other hammer toe(s) (acquired), right foot M20.41 ; Other hammer toe(s) (acquired), left foot M20.42 ; Type 2 diabetes mellitus with diabetic polyneuropathy E11.42 and Tinea unguium B35.1 Assessments Encounter Date Diagnosis (ICD Code) Assessment Notes Treatment Notes Treatment Clinical Notes Section Notes 04/05/2024 Other hammer toe(s) (acquired), right foot (ICD-10 - M20.41) Patient Educated with: DIABETIC FOOT CARE INSTRUCTIONS. pdf (DIABETIC FOOT CARE INSTRUCTIONS. pdf) 04/05/2024 Other hammer toe(s) (acquired), left foot (ICD-10 - M20.42) 04/05/2024 Type 2 diabetes mellitus with diabetic polyneuropathy (ICD-10 - E11.42) 04/05/2024 Tinea unguium (ICD-10 - B35.1) Plan Of Treatment Medication Medication Name Sig Start Date Stop Date Notes Extra Depth Orthopedic Shoes (1 Pair) with Customized Heat Molded Multidensity Innersoles (3 Pair) as directed Dx: NIDDM/Polyneuropathy (E11.42), Hammertoe Foot Deformity (M20.41,M20.42), Preulcerative Skin Lesion(s) (L85.1 04/05/2024 Treatment Notes Assessment Notes Other hammer toe(s) (acquired), right fo ot Patient Educated with: DIABETIC FOOT CARE INSTRUCTIONS.pdf (DIABETIC FOOT CARE INSTRUCTIONS.pdf) Pending Test Test Name Order Date 99420-[id number] NAIL, 6 OR MORE 04/05/2024 05511-YYOY SKIN LESIONS, 2 TO 4 04/05/20 24 Next Appt Details Follow Up: prn, Reason: Provider Name:Alana Mendes brandi, 08/23/2024 10:00:00 AM, [address] [facility], [address], [place], [address], Procedure Notes * Category Sub-Category Detail Notes Debride Nail 6-10 Nail debridement Performance o f this nail treatment by a nonprofessional would put this patients foot and overall health at risk. Therefore, debridement to affected nail(s), as described in exam, was performed extensively to reduce/remove overall nail length, girth, thickness, subungual debris, and necrotic tissue, by manual and/or electrical means through the use of a nail nipper and/or dremel-type multifocal button grinder, to a more viable healthy nail plate or bed tissue 6-10 nails in total. Silver nitrate was used for any petechial bleeding as necessary. Definitive antifungal treatment options, both pharmaceutical and surgical, have been reviewed and discussed with the patient. The patient solely prefers the use of intermittent/as needed professional debridement services for their nail condition and understands the need for additional periodic treatments to maintain effectiveness in symptomatic relief - 86508 Keratoma Treatment Parring or Cutting o f Benign Hyperkeratotic Lesion(s) (-56) 2-4 Lesions - The Benign hyperkeratotic lesions, ( 2 ) in total, locations as stated and described in exam, were pared, and/or cut utilizing a sterile 15 blade, tissue nippers, and/or power dremel instrumentation - 81293 Progress Notes * Maria E WOODB:[birth year] (69 yo F)Acc No.[id number]:04/05/2024 Progress Note Patient:?Maria E WOOD I Provider:?Alana Culp DPM :1955???Age:69 Y???Sex:Female D ate:04/05/2024 Address:[address] [place] [address], [address] [place], [place] [id number] Pcp:Rosa Espino NP Subjective: * Chief Complaints: * ???Pcp-03/07Toe IrritationAt Risk Footcare * HPI: ???Toe pain:?Location:?B/L feet.?Duration:?several years.?Course:?worse.?Aggravated by:?shoes, any pressure.?Treatments:?change in shoes.?At Risk footcare:?Pt States Last PCP Visit:?Date?03/05/2024 * ROS:?General/Constitutional:?Nausea?denies.?Vomiting?denies.?Hunger Thirst?denies.?Loss appetite?denies.?Chills?denies.?Fatigue?admits.?Fever?denies.?Night Sweats?denies.?Unexplained weight loss?denies.?Ophthalmologic:?Blurred vision?denies.?Red eye?denies.?HEENTM:?Dentures?denies.?Dizziness?denies.?Glasses/contacts?denies.?Retinopathy?den ies.?Blurred/double vision?denies.?TMJ?denies.?Discharge/drainage?denies.?Implants?denies.?Hard of hearing denies.?Difficulty chewing/swallowing/speaking?denies.?Nose bleeds?denies.?Sore mouth?denies.?Swollen glands?denies.?Respiratory:?On O xygen?denies.?Pneumonia/pleurisy?denies.?Bronchitis?denies.?Emphysema?denies.?Co ughing?denies.?Cough blood?denies.?Shortness of breath?denies.?Wheezing?denies.?Cardiovascular:?Pacemaker?denies.?MVP?denies.?WPW?denies.?CHF?denies.?Heart attack?denies.?Septal defect?denies.?Rapid beat?denies.?Chest pain ?denies.?Atrial Fib.?denies.?Murmur/Palpitations?denies.?Gastrointestinal:?Hemorrhoids?denies.?Stomach/Abdominal pain?denies.?Dark blood stool?denies.?Irritable bowel ?denies.?Constipation?denies.?Diarrhea?denies.?Vomiting?denies.?Hematology:?Swelling?admits.?Bruising?denies.?Bleeding problem?denies.?Genitourinary:?Blood urine?denies.?Frequent/Painfu/urination/bladder control?denies.?Kidney stones?denies.?Infection (UTI)?denies.?Nephropathy?denies.?Musculoskeletal:?Hammertoes?denies.?Bunions?denies.?Scoliosis/kyphosis?denies.?Muscle cramps / walking?denies.?Generalized aches and pains?admits.?Weakness?denies.?Integ.:?Rodriguez?denies.?Scars?denies.?Corns/calluses?admits.?Ingrown nails?denies.?Painful nails?denies.?Rashes?denies.?Neurologic:?Difficulty sleeping?admits.?Bipolar?admits.?Brain disorder?denies.?Balance t rouble?admits.?Confusion?denies.?Fainting/blackouts?denies.?Headache?denies.?Mc mors?admits.? * Medical History:? * Surgical History:?lap band right toe surgery 14-15 years agoCarpal Tunnel Left Hand 09/07/15 * Hospitalization/Major Diagno stic Procedure:?[facility] ER Stomach pain, Lower back pain 06/09/15, 06/11/15Carpal Tunnel surgery left hand 09/07/15[facility] Endoscopy 04/03/18 * Family History:?Mother: dece ased, diagnosed with Diabetic - NIDDM, Family history of arthritis.?Father: unknown.?Daughter(s): alive.?Son(s): alive.?Siblings: , diagnosed with Diabetic - NIDDM, Unspecified essential hypertension, Unspecified heart disease.?Spouse: alive.?2 brother(s) . 1 son(s) , 3 daughter(s) . .? 2 brothers - one from complications of diab and one from heart attack; does not know father or history. * Social History:?Tobacco Use:?Tobacco Use/Smoking?Are you a:?former smoker ?When did you stop smoking??2010 ?Additional Findings: Tobacco Non-User?Current non-smoker ?Tobacco use other than smoking?Are you an other tobacco user??No * Medications:?TakingInsulin , Notes to Pharmacist: 30 units night timebuPROPion HCl ER (XL) Ciclopirox Olamine 0.77 % Cream 1 application to affected area Externally Twice a day to effected areas on feet Ozempic Simvastatin Extra Depth Diabetic Shoes with 3 Pair Custom heat-molded multi-density innersoles for 1 year Dx: Taking Insulin , Notes to Pharmacist: 30 units night timeTaking buPROPion HCl ER (XL) Taking Ciclopirox Olamine 0.77 % Cream 1 application to affected area Externally Twice a day to effected areas on feet Taking Ozempic Taking Simvastatin Taking Extra Depth Diabetic Shoes with 3 Pair Custom heat-molded multi-density innersoles for 1 year Dx: Not-Taking/PRNTrulicity Gabapentin 300 MG Capsule 1 capsule Orally Once a day Cephalexin 500 MG Capsule 1 capsule Orally every 6 hrs Medication List reviewed and reconciled with the patientNot-Taking/PRN Trulicity Not-Taking/PRN Gabapentin 300 MG Capsule 1 capsule Orally Once a day Not-Taking/PRN Cephalexin 500 MG Capsule 1 capsule Orally every 6 hrs Medication List reviewed and reconciled with the patient * Allergies:?TylenolIbuprofen: ulcersNSAIDs: Mass on left Kidneyyes[Allergies Verified] Objective: * Vitals:?Ht: 5ft6in, Wt:204, BMI:32.92, Shoe size: 9, BS: 90, Ht-cm: 167.64 cm, Wt-k.53 kg. * ???Past Orders: ???Lab:HEMOGLOBIN A1C (GLYCO HEMOGLOBIN) (Order Date - 11/25/2023) (Collection Date & Time - 11/25/2023 01:29 PM) ? Value Reference Range ?HEMOGLOBIN A1C % (HH) 6.8 * Examination: ???Ophthalmology Referral: ?DIABETES EYE EXAM?Procedure Performed:?Yes ?Date of Exam Performed?07/14/2023 ?Findings of Diabetic Eye Exam:?no retinopathy?Orthopedic: ?MUSCLE STRENGTH:?5/5 all groups in a symmetrical fashion, B/L.?DIGITAL DEFORMITIES:?Digital contracture, PIPJ, 2-5 B/L, incompl-reducible to push-up test, no over, nor underlapping,?there is?evidence of shoe producing skin irritation.?FOOTWEAR:?worn, non-supportive, shoe gear properties exacerbate patient's foot/toe deformity.?General Examination: ?GENERAL APPEARANCE:?Reveals a pleasant, alert, well nourished, well- developed, well hydrated individual, who demonstrates proper attention to hygiene/body habitus, and is in no acute distress, Pt serves as own historian for office visit today.?ORIENTED:?person, place, and time.?FOOT EXAM:?Lower Extremity Neurological Exam performed:?Yes ?Footwear Evaluation?Footwear Evaluation performed:?Yes?Neurological: ?SENSORY:? Neurological exam demonstrates, reduced light touch sensation, reduced sharp/dull pin prick discrimination , B/L, 5.07 monofilament test performed at plantar aspects of 5 varied sites per foot shows sensation, reduced , B/L.?Nails: ?NAILS are:?Elongated, overgrown, dystrophic, lytic, greater than 3mm thick, discolored and friable with crumbly malodorous subungual debris, 1-5 B/L.?Dermatologic: ?SKIN FINDINGS:?Skin exam reveals Keratotic lesion(s) located at plantar heels B/L.?Vascular: ?DP PULSES(B):??2/4, B/L.?PT PULSES(B):? 1/4, B/L.?CAPILLARY FILL TIME:? 3 secs. per digit, B/L.?TROPHIC CONDITION-TEXTURE/ELASTICITY/TURGOR/HAIR GROWTH(B):? normal.?TEMPERTURE GRADIENT(C):?normal, warm to cool, proximal to distal, B/L, B/L.?PIGMENTATION:?normal, B/L.? Assessment: * Assessment: 1.?Other hammer toe(s) (acqu ired), right foot - M20.41 (Primary)???Specify :Chronic problem, Worse (4),Rx Management (4)???2.?Other hammer toe(s) (acquired), left foot - M20.42???Specify :Chronic problem, Worse (4),Rx Management (4)???3.?Type 2 diabetes mellitus with diabetic polyneuropathy - E11.42???4.?Tinea unguium - B35.1??? Plan: * Treatment: 2.?Type 2 diabetes mellitus with diabetic polyneuropathy?Procedure: 56425-KKEKTSX NAIL, 6 OR MORE * Procedures:?Debride Nail 6-10:?Nail debridement?Performance of this nail treatment by a nonprofessional would put this patients foot and overall health at risk. Therefore, debridement to affected nail(s), as described in exam, was performed extensively to reduce/remove overall nail length, girth, thickness, subungual debris, and necrotic tissue, by manual and/or electrical means through the use of a nail nipper and/or dremel-type multifocal button grinder, to a more viable healthy nail plate or bed tissue 6-10 nails in total. Silver nitrate was used for any petechial bleeding as necessary. Definitive antifungal treatment options, both pharmaceutical and surgical, have been reviewed and discussed with the patient. The patient solely prefers the use of intermittent/as needed professional debridement services for their nail condition and understands the need for additional periodic treatments to maintain effectiveness in symptomatic relief - 64499.?Keratoma Treatment:?Parring or Cutting of Benign Hyperkeratotic Lesion(s)?(-56) 2-4 Lesions - The Benign hyperkeratotic lesions, ( 2 ) in total, locations as stated and described in exam, were pared, and/or cut utilizing a sterile 15 blade, tissue nippers, and/or power dremel instrumentation - 43837.? * Procedure Codes:?15436 DEBRI DE NAIL, 6 OR MORE, Modifiers: XS 53654 TRIM SKIN LESIONS, 2 TO 4, Modifiers: XS * Preventive Medicine:? ??Counseling:?Discussion:?-14: Office or other outpatient visit for the evaluation and management of an established patient, which required a medically appropriate history and/or examination and MODERATE level of DECISION MAKING for: 1 OR MORE CHRONIC PROBLEM(S) THATS WORSENING, 2 STABLE CHRONIC PROBLEMS, A NEWLY DIAGNOSED PROBLEM WITH UNCERTAIN PROGNOSIS, AN ACUTE COMPLICATED INJURY WITH MULTIPLE TREATMENT OPTIONS, OR AN ACUTE PROBLEM WITH ACCOMPANYING SYSTEMIC SYMPTOMS, THAT POSE(S) A MODERATE RISK OF MORBIDITY. THIS CONDITION MAY ALSO INCLUDE RX DRUG MANAGEMENT, OR A DECISON FOR MINOR SURGERY. The visit on the day of the encounter encompassed interpreting the data and educating the patient as to the nature of their condition, treatment options available according to their individual PMH, meds, allergies, and overall health/living conditions, as well as any potential risks or complications that may occur from a failure to adhere to, and participate in, the recommended course of therapy. The discussion included a complete verbal, and/or written explanation of the examination results, any x-rays taken, the proposed diagnosis, and outline of the treatment plan. A schedule for future care needs was also explained. The patient verbalized an understanding of the instructions at this time and agreed to be an active participant in their treatment. If the patient should think of any questions or concerns after the visit, I have encouraged the patient to call the office.?Digital Surgery:?Digital surgery was discussed with the patient, We elected to try conservative treatment at the present time, due to the patients medical history and increased asssociated post-operative risks.?Digital Treatment:?HT- I explained to the patient the possible etiologies of Hammertoes, including genetics/foot type/shoegear/activity level/exercise routine and the risks/benefits of all the different treatment options for their pain including: No treatment at all, Rest, Ice, New/supportive/wider/deeper Shoegear, Digital Padding/Strapping/Taping/Bracing/Gel protective sleeves, Foot/Ankle AFO Bracing, Stretching exercises, Deep Tissue Massage, Arch support/shoe inserts with splay metatarsal padding, and Custom orthoses. I insisted that any digital devices be removed daily and not worn overnight for safety. The patient is to carefully examine the toes daily for any skin irritation while using any splinting or padding device. The advantages and disadvantages of each option were discussed and the patients questions re: shoegear, padding, custom vs prefabricated inserts, activity level, and consistency in home treatment regimens for optimal success were answered to their verbally confirmed satisfaction.?Shoe Gear Counseling:?SHOE Rx - The patient was counseled in great detail on their muscoloskeletal foot and toe deformities which coincided with the dermatological presentations visualized on exam. We discussed how their deformities put the integrity of their feet at risk for potential pedal complications which makes the accomidative diabetic shoes and cutomizable inserts medically necessary. We discussed the different shoe and insert treatment types and options, as well as the important advantages for adhering to regularly wearing these accomidative devices daily. The patient was made aware of the fact that a failure to abide by these recommedations may be deleterious to their foot health as they are able to prevent many pedal complications such as skin irritation, skin ulceration, infection, and even loss of toe/foot/leg/or life. Time was also spent with the patient dispensing and discussing proper diabetic footcare techniques including daily skin moisturization, daily foot inspection for any interruption in skin integrity including open lesions, or sign of infection such as redness/malodor/drainage/swelling. Also discussed and recommended were procedures regarding daily shoe inspection for the presence of internal foreign bodies as well as any visualized irregular shoe or insert wear. Patient questions re: shoes, inserts, and self foot inspections were answered to their satisfaction as the patient verbally confirmed a full understanding of the above information. A Rx for Extra Depth Orthopedic Shoes with 3 pair of custom heat-molded inserts was dispensed.?Ulcer:?.? * Follow Up:?prn * Images: * Sign off status: Completed true * Provider:?Alana Culp DPM Date:?06/05/2023 Generated for Tommy flowers/Bob/Dianitting on:?08/15/2024 09:48 AM EDT History and Physical Notes * HPI (History of Present Illness) Category Sub-Category Detail Notes Category Not es Toe pain Location: B/L feet Duration: several years Course: worse Aggravated by: shoes, any pressure Treatments: change in shoes At Risk footcare Pt States Last PCP Visit: Date: 4 Examination Category Sub-Category Detail Notes Category Not es Neurological SENSORY: Neurological exa m demonstrates, reduced light touch sensation, reduced sharp/dull pin prick discrimination , B/L, 5.07 monofilament test performed at plantar aspects of 5 varied sites per foot shows sensation, reduced , B/L Dermatologic SKIN FINDINGS: Skin exam reveal s Keratotic lesion(s) located at plantar heels B/L Orthopedic FOOTWEAR EVALUATION: worn, non-s upportive, shoe gear properties exacerbate patient's foot/toe deformity DIGITAL DEFORMITIES: Digital contracture , PIPJ, 2-5 B/L, incompl-reducible to push-up test, no over, nor underlapping, there is evidence of shoe producing skin irritation MUSCLE STRENGTH: 5/5 all groups in a symmetrical fashion, B/L General Examination GENERAL APPEARANCE: Reveals a pleasant, alert, well nourished, well-developed, well hydrated individual, who demonstrates proper attention to hygiene/body habitus, and is in no acute distress, Pt serves as own historian for office visit today FOOT EXAM: Lower Extremity Neurological Exa m performed:: Yes ORIENTED: person, place, and t nayeli Footwear Evaluation Footwear Evaluation performe d:: Yes Ophthalmology Referral DIABETES EYE EXAM Procedure Perform ed:: Yes ?Date of Exam Performed: 07/14/2023 Findings of Diabetic Eye Exam:: no retin opathy Vascular DP PULSES (B): 2/4, B/L PT PULSES (B): 1/4, B/L CAPILLARY FILL TIME: 3 secs. per digit, B/L TEMPERTURE GRADIENT (C): normal, warm to cool, proximal to distal, B/L, B/L TROPHIC CONDITION-TEXTURE/ELASTICITY/TURGOR/HAIR GROWTH (B): normal PIGMENTATION: normal, B/L Nails NAILS are: Elongated, overg rown, dystrophic, lytic, greater than 3mm thick, discolored and friable with crumbly malodorous subungual debris, 1-5 B/L
--- OUTSIDE RECORDS SUMMARY | 2024-08-15 09:48 | XMS_ITS | Data Portability ---
Author Organization [facility], [address] Address [address] [place] [phone] Assessment No assessment recorded. Plan of Treatment Reminders Order Date Submit Date Provider Last Modified By Organization Details Last Modified Time Details Appointments None recorded. Lab SARS CoV 2 (COVID-19) Ag, QL, IA, upper respiratory specimen 2023 024 [email or web address] [facility] [address] [place], [address], 4 11:36:23 rapid strep group A, throat 2023 024 [email or web address] 247 [facility], [address] [place], [address], 4 11:36:24 Referral None recorded. Procedures None recorded. Surgeries None recorded. Imaging None recorded. Medication Orders albuterol sulfate 2.5 mg/3 mL (0.083 %) solution for nebulizatio n 2023 024 [email or web address] Not available 4 11:36:16 albuterol sulfate HFA 90 mcg/actuati on aerosol inhaler 2023 024 [facility][id number], [address] [place], [address], 4 11:40:03 prednisone 20 mg tablet 2023 024 [facility] #[id number], [address] [place], [address], 11:40:02 doxycycline hyclate 100 mg capsule 2023 024 [facility][id number], [address] [place], [address], 11:40:01 Patient TargetsNo targets recorded. Patient Instructions Encounter Date Encounter Id Patient Instructions Last Modified By Organization Details Last Modified Time 02/02/2024 [id number] peak flow* [email or web address] Not available 0 02/02/2024 11:36:25 How to use the Aerochamber Attach the inhaler to the chamber [place] 2 puffs in to the chamber Put the chamber in your mouth with you lips closed around it Take 3 separate breaths from the chamber. Don't breath into the chamber. Follow-up with your doctor if no improvement in 1 week. Seek Emergency Medical evaluation for any worsening symptoms. [email or web address] Not available 02/02/2024 11:39:52 Reason for Referral None Reported. Results Created Date Observation Date Name Description Value Unit Range Abnormal Flag Note LastModifiedBy Organization Detail LastModifiedTime 02/02/20 24 02/02/2024 peak flow* Pre (L/min) 170 Not Available [address], [address], 02/02/2024 11:07:04 02/02/20 24 02/02/2024 peak flow* Post (L/min) 240 Not Available [address], [address], 02/02/2024 11:07:04 02/02/20 24 02/02/2024 peak flow* Pulse 79 Not Available [address], [address], 02/02/2024 11:07:04 02/02/20 24 02/02/2024 peak flow* Oxygen Saturation 98 Not Available [address], [address], 02/02/2024 11:07:04 02/02/20 24 02/02/2024 SARS CoV 2 (COVI D-19) Ag, QL, IA, upper respi rator y speci men Unknown Analyte negati ve Not Available [facility] [address] [place] [address], [address], 02/02/2024 10:22:42 02/02/20 24 02/02/2024 SARS CoV 2 (COVI D-19) Ag, QL, IA, upper respi rator y speci men Unknown Analyte yes Not Available [address] [place], [place] [address] [address] [place] [address], [address], 02/02/2024 10:22:42 02/02/20 24 02/02/2024 rapid strep group A, throa t Unknown Analyte negati ve Not Available [address] [place], [place] [address], [address], 02/02/2024 10:23:28 02/02/20 24 02/02/2024 rapid strep group A, throa t Unknown Analyte yes Not Available [address] [place] [address], [address], 02/02/2024 10:23:28 Result Notes None recorded. Problems Name Problem SNOMED Code Status Onset Date Resolution Date Notes Provider Name and Address Organization Details Recorded Time Diabetes mellitus 34479199 Active Lenore Garcia null, [place] - [facility] 4 10:21:16 Depressive disorder 49357595 Active Lenore Garcia null, PA - [facility] 4 10:21:24 Anxiety 81326328 Active Lenore Garcia null, PA - [facility] 4 10:21:33 Problem Notes None recorded. Medical Equipment None Reported. Allergies No known drug allergies Medications Name Sig Start Date Stop Date Status Note LastModified by Organization Details LastModified Time quetiapin e 25 mg tablet TAKE 2 TABLETS (50 MG TOTAL) BY MOUTH EVERY NIGHT active Not Available Not Available No t Available atorvasta tin 40 mg tablet TAKE 1 TABLET BY MOUTH EVERY DAY active Not Available Not Available No t Available clotrimaz ole 10 mg brisa active Not Available Not Available Not Available doxycycli ne hyclate 100 mg capsule TAKE 1 CAPSULE TWICE A DAY BY ORAL ROUTE DIRECTED FOR 10 DAYS, FOR ASTHMATI C BRONCHIT IS. active Not Available Not Available No t Available ropinirol e 1 mg tablet TAKE 1 TABLET BY MOUTH EVERYDAY AT BEDTIME active Not Available Not Available No t Available albuterol sulfate 2.5 mg/3 mL (0.083 %) solution for nebulizat ion Inhale 3 mL by nebuliza tion route. 2023 active Billable unit is always one. Units are not the dose. Not Available Not Available Not Available prednison e 20 mg tablet TAKE 3 TABLETS EVERY DAY BY ORAL ROUTE IN THE MORNING FOR 7 DAYS, FOR ASTHMATI C BRONCHIT IS. active Not Available Not Available No t Available omeprazol e 40 mg capsule,d elayed release TAKE 1 CAPSULE BY MOUTH EVERY DAY active Not Available Not Available No t Available lisinopri l 10 mg tablet TAKE 1 TABLET BY MOUTH 1 TIME EACH DAY. 02/01 completed Not Available Not Available Not Available docusate sodium 100 mg capsule TAKE 1 CAPSULE BY MOUTH 2 TIMES A DAY,X30 DAYS NEEDED FOR CONSTIPA TION active Not Available Not Available No t Available sertralin e 25 mg tablet TAKE 1 TABLET BY MOUTH EVERYDAY AT BEDTIME active Not Available Not Available No t Available hydroxyzi ne HCl 25 mg tablet TAKE 1 TABLET BY MOUTH FOUR TIMES A DAY NEEDED FOR ANXIETY 02/01 completed Not Available Not Available Not Available lisinopri l 5 mg tablet TAKE 1 TABLET BY MOUTH EVERY DAY active Not Available Not Available No t Available sertralin e 50 mg tablet TAKE 1 TABLET BY MOUTH EVERY DAY 02/01 completed Not Available Not Available Not Available Ventolin HFA 90 mcg/actua tion aerosol inhaler INHALE 2 PUFFS 3 TIMES A DAY BY INHALATI ON ROUTE DIRECTED FOR 7 DAYS, FOR ASTHMATI C BRONCHIT IS. active Not Available Not Available No t Available Novolog FlexPen U-100 Insulin aspart 100 unit/mL (3 mL) subcutane ous FOLLOW CURRENT SLIDING SCALE. 1-6 UNITS 3 TIMES A DAY WITH MEALS. MAX DOSE 18 UNITS DAILY active Not Available Not Available No t Available bupropion HCl XL 300 mg 24 hr tablet, extended release TAKE 1 TABLET BY MOUTH EVERY MORNING. active Not Available Not Available No t Available tizanidin e 2 mg capsule TAKE 1 CAPSULE BY MOUTH THREE TIMES A DAY NEEDED active Not Available Not Available No t Available BD Ultra-Fin e Short Pen Needle 31 gauge x 5/16 USE DIRECTED FOR TYPE 2 DIABETES MELLITUS TO GIVE INSULIN 4X DAILY. active Not Available Not Available No t Available Linzess 145 mcg capsule TAKE 1 CAPSULE BY MOUTH EVERY DAY active Not Available Not Available No t Available Basaglar KwikPen U-100 Insulin 100 unit/mL (3 mL) subcutane ous MAXIMUM DAILY DOSE 30 UNITS SUBCUTAN EOUSLY AT BEDTIME EVERY NIGHT 90 DAYS SUPPLY active Not Available Not Available No t Available Admelog SoloStar U-100 Insulin lispro 100 unit/mL subcutane ous pen FOLLOW CURRENT SLIDING SCALE. 2-7 UNITS 3 TIMES A DAY WITH MEALS. E11.9 MAX DOSE 21 UNITS DAILY active Not Available Not Available No t Available Ozempic 1 mg/dose (4 mg/3 mL) subcutane ous pen injector active Not Available Not Available Not Available Ozempic 0.25 mg or 0.5 mg (2 mg/3 mL) subcutane ous pen injector INJECT 0.5 MG ONCE WEEKLY SUBCUTAN EOUSLY. 02/01 completed Not Available Not Available Not Available Vitals Date Recorded Body height Body mass index (BMI) Body weight Oxygen saturation Oxygen saturation in Arterial blood by Pulse oximetry Pain severity - 0-10 verbal numeric rating [Score] - Reported Heart rate Respiratory rate Body temperature Systolic blood pressure Diastolic blood pressure Provider Name and Address Organization Details Last Updated DateTime 4 167.64 cm 32.9 kg/m2 53896.8 4 g 98 % 98 % 5 71 /min 17 /min 98.5 [degF] 130 mm[Hg] 83 mm[Hg] Lenore HARRINGTON - [facility] 4 10:19:01 Social History Question Answer Notes LastModified by Organizat ion Details LastModified Time Tobacco Smoking Status Current Some Day Smoker Lenore duvall PA [facility] 02/02/2024 10:22:12 What Is Your Level Of Alcohol Consumption? None [email or web address] Information not available 02/02/2024 Are You Currently Employed? No Retired [email or web address] Information not available 02/02/2024 Have You Had A Flu Shot This Season? No Information not available 02/02/2024 If No, Would You Like A Flu Shot Today? No Information not available 02/02/2024 What Is Your Relationship Status? Information not available 02/02/2024 Do You Use Any Illicit Or Recreational Drugs? No [email or web address] Information not available 02/02/2024 Have You Recently Traveled Abroad? No Information not available 02/02/2024 Do You Or Have You Ever Used Any Other Forms Of Tobacco Or Nicotine? No [email or web address] Information not available 02/02/2024 Sex: Unknown Functional Status None recorded. Mental Status None recorded. Family History Nothing Reported. Medical History No medical history recorded. Gynecological History Statement/Question Response Is there any chance of ? No LMP N/A Obstetrics History GPAL:G 0 P 0 0 0 0 Immunizations Vaccine Type Date Status Note Provider Nam e and Address Organization Details Recorded Time COVID-19, mRNA, LNP-S, PF, 30 mcg/0.3 mL dose 1 completed Lenore Garcia null, PA - [facility] 02/02/2024 10:17:43 COVID-19, mRNA, LNP-S, PF, 30 mcg/0.3 mL dose 1 completed Lenore duvall, PA - [facility] 02/02/2024 10:17:43 Influenza, split virus, trivalent, preservative 2 completed Lenore Garcia null, PA - [facility] 02/02/2024 10:17:43 Past Encounters Encounter ID Performer Location Encounter Start Date Encounter Closed Date Diagnosis/Indication Diagnosis SNOMED-CT Code Diagnosis ICD10 Code Diagnosis Note [id number] [address] [address] [place] [address] 08/22/2019 09:36:16 08/22/2019 09:56:32 [id number] [place]IGOBERTO DAVID [place] [address] [address] 02/02/2024 09:51:56 02/02/2024 11:40:57 Persistent cough 261051128 R05.3 Acute bron chitis with bronchospasm 26623586 J20.9 Health Concerns Section Related Observation LastModified by Organization Detai ls LastModified Time None Recorded Concern Status LastModified by Organization Details LastModified Time None Recorded Advance Directives Directive None Recorded Payers Encounter Date Sequence Insurance Name Policy Number Policy Echeverria Covered Member ID Echeverria Member ID Guarantor Name 08/22/2019 1 MEDICARE B-[place]: [facility] [employer] Maria E I [place] [id number] Maria E Wood 08/22/2019 1 [place] [employer] Maria E I [place] [id number] Maria E Wood 02/02/2024 1 [place] Maria E Wood [id number] Maria E Wood 02/02/2024 2 [place] [employer] Maria E I [place] [id number] Maria E Wood Notes Date Note Type Note Provider Name and Address Organization Details Recorded Time 02/02/2024 text/html 68 yo F c/o coug h x 11 days and it is getting worse. She states her chest and upper back hurt each time she coughs. She had Asthma years ago. She is on no medication for it currently. She has had 2 negative covid tests this week. Afebrile and no other associated sxs. RIGOBERTO DAVID MD [address] [place] [address] [place], [address], [place] - [facility] 02/02/2024 11:41:17 OBGyn Episode No OBEpisode recorded.
--- OUTSIDE RECORDS SUMMARY | 2024-08-15 09:49 | XMS_ITS | Patient Health Record ---
Author Organization [facility] Address [address] [place] [address] Care Team Providers Care Bottom Bleacher Name Role Phone Kenzie CAZARES, Rosa Primary Care Provider Blaise Abbott Unavailable [phone] Alana Culp Unavailable [phone] Allergies Allergen (clinical drug ingredient) Drug/Non Drug Allergy documented on EMR Reaction Allergy Type Onset Date Status ibuprofen Ibuprofen ulcers Drug Allergy Active acetaminophen Tylenol Unknown Drug Allergy Act irene Non-steroidal anti-inflammatory agent (FN) NSAIDs Mass on left Kidney Drug Allergy Active Results Component Value Reference Range Notes HEMOGLOBIN A1C (GLYCOHEMOGLO BIN) Reviewed date:01/02/2024 01:29:58 PM Interpretation: Performing Lab: Notes/Report: HEMOGLOBIN A1C % (HH) 6.8 Reason For Referral No Information Medications Medication SIG (Take, Route, Frequency, Duration) Notes Start Date End Date Status Trulicity Not-Taking Simvastatin Active Extra Depth Diabetic Shoes with 3 Pair Custom heat-molded multi-density innersoles for 1 year Dx: Active Extra Depth Orthopedic Shoes (1 Pair) with Customized Heat Molded Multidensity Innersoles (3 Pair) as directed Dx: NIDDM/Polyneuropathy (E11.42), Hammertoe Foot Deformity (M20.41,M20.42), Preulcerative Skin Lesion(s) (L85.1 04/05/2024 Active Gabapentin 300 MG 1 capsule Orally Onc e a day for 30 day(s) Not-Taking Cephalexin 500 MG 1 capsule Orally every 6 hrs for 10 day(s) Not-Taking Ciclopirox Olamine 0.77 % 1 application to affected area Externally Twice a day to effected areas on feet for 30 days Active Ozempic Active Insulin 30 units night time Active buPROPion HCl ER (XL) Active Immunizations Vaccine Route Administration Date Status Comme nts COVID-19 Pfizer BioNTech Vaccine Unknown 09/20/2020 Adm inistered 08/30/20 Influenza Unknown 02/12/2015 Administered Influenza Unknown 06/27/2016 Administered Influenza Unknown 01/25/2017 Administered Influenza Unknown 04/24/2018 Administered Influenza Unknown 04/24/2019 Administered Social History Tobacco Use: Social History Observation Description Date Details (start date - stop date) Former Smoker NA - NA Tobacco Use/Smoking Question Answer Notes Are you a: former smoker When did you stop smoking? 2010 Additional Findings: Tobacco Non-User Current no n-smoker Alcohol Screen Question Answer Notes Did you have a drink containing alcohol in the p ast year? No Points 0 Interpretation Negative Tobacco use other than smoking: Question Answer Notes Are you an other tobacco user? No Section Notes: A1C 03/13/15 8.2 Flu Shot 03/2015 Eye Exam 02/2015 Problems Problem Type SNOMED Code ICD Code Onset Dates Problem Status W/U Status Risk Notes Problem Acquired hammer toe of right foot (5976223595255878 ) Other hammer toe(s) (acquired), right foot (M20.41) Active confirmed Problem Acquired hammer toe of left foot (7639757570807759 ) Other hammer toe(s) (acquired), left foot (M20.42) Active confirmed Problem Polyneuropathy due to diabetes mellitus type I (437457950) Type 1 diabetes mellitus with diabetic polyneuropathy (E10.42) Active confirmed Problem Polyneuropathy due to type 2 diabetes mellitus (587070260) Type 2 diabetes mellitus with diabetic polyneuropathy (E11.42) Active confirmed Vital Signs Height 5ft6in in 04/05/2024 Weight 204 lbs 04/05/2024 BMI 32.92 kg/m2 04/05/2024 Procedures Procedure Date Ordered Date Performed Result Body Sit e 24267-BFCKOYL NAIL, 6 OR MORE 04/05/2024 N/A 31666-TWHT SKIN LESIONS, 2 TO 4 04/05/2024 N/A Encounters Encounter Location Date Provider Diagnosis [facility] [address] 08/22/2023 Blaise Bunch Ingrowing nail L60.0 ; Tinea unguium B35.1 ; Pain in right toe(s) M79.674 ; Pain in left toe(s) M79.675 and Type 2 diabetes mellitus with diabetic polyneuropathy E11.42 [facility] [address] [place] [address] 01/02/2024 Blaise Bunch Ingrowing nail L60.0 ; Tinea unguium B35.1 ; Pain in right toe(s) M79.674 ; Pain in left toe(s) M79.675 and Type 2 diabetes mellitus with diabetic polyneuropathy E11.[address] [address] 04/05/2024 Alana Culp Other hammer toe(s) (acquired), right foot M20.41 ; Other hammer toe(s) (acquired), left foot M20.42 ; Type 2 diabetes mellitus with diabetic polyneuropathy E11.42 and Tinea unguium B35.[address] [address] 11/10/2023 Blaise Bunch [address] [address] 12/13/2023 Blaise Bunch Assessments Encounter Date Diagnosis (ICD Code) Assessment Notes Treatment Notes Treatment Clinical Notes Section Notes 08/22/2023 Ingrowing nail (ICD-10 - L60.0) 01/02/2024 Ingrowing nail (ICD-10 - L60.0) 04/05/2024 Other hammer toe(s) (acquired), right foot (ICD-10 - M20.41) Patient Educated with: DIABETIC FOOT CARE INSTRUCTIONS. pdf (DIABETIC FOOT CARE INSTRUCTIONS. pdf) 04/05/2024 Other hammer toe(s) (acquired), left foot (ICD-10 - M20.42) 04/05/2024 Type 2 diabetes mellitus with diabetic polyneuropathy (ICD-10 - E11.42) 08/22/2023 Tinea unguium (ICD-10 - B35.1) 01/02/2024 Tinea unguium (ICD-10 - B35.1) 04/05/2024 Tinea unguium (ICD-10 - B35.1) 01/02/2024 Pain in right toe(s) (ICD-10 - M79.674) 08/22/2023 Pain in right toe(s) (ICD-10 - M79.674) 08/22/2023 Pain in left toe(s) (ICD-10 - M79.675) 01/02/2024 Pain in left toe(s) (ICD-10 - M79.675) 01/02/2024 Type 2 diabetes mellitus with diabetic polyneuropathy (ICD-10 - E11.42) 08/22/2023 Type 2 diabetes mellitus with diabetic polyneuropathy (ICD-10 - E11.42) Plan Of Treatment Pending Test Test Name Order Date 09390-ONFEQCP NAIL, 6 OR MORE 02/18/2014 14517-GDORTPL NAIL, 6 OR MORE 06/20/2014 55039-VGKYLNB NAIL, 6 OR MORE 09/19/2014 93903-VTKYFTA NAIL, 6 OR MORE 12/12/2014 66825-SHIEXIB NAIL, 6 OR MORE 03/13/2015 71374-FTPZZUB NAIL, 6 OR MORE 06/16/2015 75387-TZBTTFL NAIL, 6 OR MORE 09/08/2015 67878-IQRGNTI NAIL, 6 OR MORE 01/15/2016 36071-NCDVLDM NAIL, 6 OR MORE 05/17/2016 31066-SUVQJZF NAIL, 6 OR MORE 01/17/2017 62419-SNYOKUI NAIL, 6 OR MORE 04/21/2017 74387-YHPEPIA NAIL, 6 OR MORE 07/18/2017 17989-LMCWMSG NAIL, 6 OR MORE 04/24/2018 20544-ZUEPSZQ NAIL, 6 OR MORE 10/24/2017 38822-XXHQANG NAIL, 6 OR MORE 01/23/2018 86607-DVJDFEN NAIL, 6 OR MORE 04/05/2024 35053-Euuyccrm Plate 04/24/2018 37787-Upzfjhfm Plate 09/12/2017 49110-Dqyniquq Plate 07/18/2017 69413-Vwroyffp Plate 02/18/2014 32872- Debride <25 sq cm 03/04/2014 01666- Debride <25 sq cm 08/01/2017 52011-YIIK SKIN LESIONS, OVER 4 07/19/19 18 64219-HOJC SKIN LESIONS, OVER 4 04/21/20 17 37463-GVIN SKIN LESIONS, OVER 4 05/17/19 17 52228-CMJH SKIN LESIONS, OVER 4 09/14/19 17 93792-CCXK SKIN LESIONS, OVER 4 01/18/20 17 05143-VISH SKIN LESIONS, OVER 4 01/15/20 16 12448-FVYD SKIN LESIONS, OVER 4 09/08/19 16 18541-IEEG SKIN LESIONS, OVER 4 06/20/19 15 48458-LTTZ SKIN LESIONS, OVER 4 02/19/20 14 19770-CERI SKIN LESIONS, OVER 4 06/16/19 16 08227-EBCK SKIN LESIONS, OVER 4 03/13/20 15 53242-IGQH SKIN LESIONS, OVER 4 12/13/19 15 05729-SJLG SKIN LESIONS, OVER 4 09/20/19 15 76184-RITR SKIN LESIONS, OVER 4 10/25/19 18 48622-VTHM SKIN LESIONS, OVER 4 01/24/20 18 19828-PKJQ SKIN LESIONS, OVER 4 04/24/20 18 41065-NZMY SKIN LESIONS, OVER 4 08/22/19 19 04613-RGKD SKIN LESIONS, OVER 4 12/01/19 19 43756-YVVB SKIN LESIONS, OVER 4 03/26/20 19 05946-JZAT SKIN LESIONS, OVER 4 07/19/19 20 06213-LYFY SKIN LESIONS, OVER 4 11/05/19 20 90233-IQGX SKIN LESIONS, OVER 4 02/14/20 20 52297-FTWL SKIN LESIONS, OVER 4 05/22/19 21 48414-XWVH SKIN LESIONS, OVER 4 08/22/19 21 52466-XICP SKIN LESIONS, OVER 4 11/25/19 21 46042-LHKM SKIN LESIONS, OVER 4 02/24/20 21 53042-YXQA SKIN LESIONS, OVER 4 05/25/19 22 62599-WGSG SKIN LESIONS, OVER 4 08/25/19 22 89683-WHTR SKIN LESIONS, 2 TO 4 04/05/20 24 Next Appt Details Provider Name:Alana paz, 08/23/2024 10:00:00 AM, [address] [facility], [facility] [address], [place], [address], Insurance Providers Payer Name Payer Address Payer Phone Subscriber Number Group Number Insured Name Patient Relationship to Insured Coverage Start Date Coverage End Date Medicare National [employer] [address] [place] [phone] [id number] Maria E Wood Self - patient is the insured [employer] [address] [place] [phone] [id number] Jordan Wood Spouse - patient is the spouse of the insured Medical (General) History Medical History History ICD Code Anxiety Back,Hip,and Knee pain Bipolar disorder Chicken pox Depression Diabetes mellitus Fibromyalgia Headaches Measles Reflux tremors Surgical History Surgery Date(Month/Year) lap band 02/01/12 right toe surgery 14-15 years ago Carpal Tunnel Left Hand 09/07/15 Hospitalization History Reason Date(Month/Year) [facility] Endoscopy 04/03/18 Carpal Tunnel surgery left hand 09/07/15 [facility] ER Stomach pain, Lower back pain 05/16 10/28, 06/11/15
--- OUTSIDE RECORDS SUMMARY | 2024-08-15 09:49 | XMS_ITS | Clinical Summary ---
Author Organization [facility] Address [address] [place] [address] Phone Care Team Providers Care Salvager Name Role Phone Dave Mast MD Primary Care Provider Allergies No known active allergies Medications atorvastatin (LIPITOR) 40 MG tablet Take 40 mg by mouth 1 (one) time each day Active insulin aspart (NovoLOG) 100 UNIT/ML injection Inject 5 Units under the skin 1 (one) time each day Active insulin glargine (Basaglar KwikPen) 100 UNIT/ML injection Inject 40 Units under the skin 1 (one) time each day Active Blood Pressure Monitor kit 1 kit 1 (one) time each day if needed (for tracking blood pressure) 1 kit 1 Active Ozempic, 0.25 or 0.5 MG/DOSE, 2 MG/3ML solution pen-injector INJECT 0.25 MG ONCE WEEKLY FOR NEXT 4 WEEKS, THEN 0,5MG WEEKLY FOR 4 WEEKS SUBCUTANEOUSLY 3 Active Diclofenac Sodium 1 % gel APPLY 2 GRAMS TOPICALLY 4 TIMES A DAY NEEDED FOR PAIN,NOT TO EXCEED 8 GRAMS PER DAY 3 Active lisinopril 10 MG tablet Take 1 tablet (10 mg total) by mouth 1 (one) time each day 90 tablet 5 3 Active QUEtiapine (SEROquel) 25 MG tablet Take 2 tablets (50 mg total) by mouth every night 180 tablet 5 3 Active buPROPion XL (WELLBUTRIN XL) 300 MG 24 hr tablet Take 1 tablet (300 mg total) by mouth every morning 90 tablet 5 3 Active rOPINIRole (REQUIP) 1 MG tablet Take 1 tablet (1 mg total) by mouth at bed time 90 tablet 3 Active Active Problems Problem Noted Date Diagnosed Date Essential (primary) hypertension 12/13/2021 Blood in urine 12/02/2020 Elevated blood-pressure read ing without diagnosis of hypertension 12/02/2020 Family History Medical History Relation Comments Diabetes Mother Hypertension Sibling 1 Diabetes Sibling 2 Heart disease Sibling 3 Kidney disease Sibling 4 Relation Status Comments Father Mother Sibling 1 Sibling 2 Sibling 3 Sibling 4 Social History Tobacco Use Types Packs/Day Years Used Date Smoking Tobacco: Every Day Cigarettes Last attempted to quit: 05/15/2010 Smokeless Tobacco: Never Tobacco Cessation:Ready to Q uit: Not Asked Comments:Smoking History Info:Every day Alcohol Use Standard Drinks/Week Comments No 0 (1 standard drink = 0.6 oz pur e alcohol) Comments Unknown Sex and Gender Information Value Date Recorded Sex Assigned at Not on file Legal Sex Female 4:59 PM EST Gender Identity Not on file Sexual Orientation Not on file Last Filed Vital Signs Vital Sign Reading Time Taken Comments Blood Pressure 156/80 03/31/2023 10:27 AM EST Pulse 67 03/31/2023 10:27 AM EST Temperature - - Respiratory Rate - - Oxygen Saturation 99% 12/15/2020 1:00 PM EDT Inhaled Oxygen Concentration - - Weight 97.1 kg (214 lb) 03/31/2023 10:27 AM EST Height 165.1 cm (5' 5 ) 11/28/2019 12:00 PM EDT Body Mass Index 35.61 11/28/2019 12:00 PM EDT Plan of Treatment Health Maintenance Due Date Last Done Comments Breast Cancer Screening 1955 Colorectal Cancer Screening: Annual FOBT 02/24/2005 Colorectal Cancer Screening: Colonoscopy 02/24/2005 Colorectal Cancer Screening: Sigmoidoscopy 02/24/2005 Pneumococcal Vaccine: 65+ Years (2 of 2 - PCV) 03/06/2020 03/06/2019 Diabetes: Ophthalmology Exam 03/31/2023 Diabetes: Pedal Pulse Checked 03/31/2023 Diabetes: Sensory Foot Exam 03/31/2023 Diabetes: Visual Foot Exam 03/31/2023 Influenza Vaccine (#1) 2024 Diabetes: Hemoglobin A1C 03/13/2024 024, 07/16/2020 Hepatitis B Vaccine Aged Out No longe r eligible based on patient's age to complete this topic Procedures Procedure Name Priority Date/Time Associated Diagnosis Comments HEMOGLOBIN A1C Routine 12/12/2023 7:53 AM EDT from Last 3 Months or Most Recently Relevant to Health Maintenance Results * (ABNORMAL) Hemoglobin A1c (12/12/2023 7:53 AM EDT) Hemoglobin A1C 7.0(H) 4.8 - 5.6 % [facility] Comment: ? Prediabetes: 5.7 - 6.4 ? Diabetes: >6.4 ? Glycemic control for adults with diabetes: <7.0 12/12/2023 7:53 AM EDT 12/12/2023 Johnathon Nash MD LAB BLOOD ORDERABLES Karuna bledsoe Result [facility] [address] [place] [address] from Last 3 Months or Most Recently Relevant to Health Maintenance Insurance [place] Care Teams Salvager Relationship Specialty Start Date End Date Dave Mast MD [address], [place] PCP - General Internal Medicine 03/31/23
--- OUTSIDE RECORDS SUMMARY | 2024-08-15 09:49 | XMS_ITS ---
Author Organization [facility] [place] Address [address] [place] [address] Care Team Providers Care Stud Sheep Farmer Name Role Phone Kenzie CAZARES, Rosa Primary Care Provider Blaise Abbott Unavailable [phone] Allergies Allergen (clinical drug ingredient) Drug/Non Drug Allergy documented on EMR Reaction Allergy Type Onset Date Status ibuprofen Ibuprofen ulcers Drug Allergy Active acetaminophen Tylenol Unknown Drug Allergy Act irene Non-steroidal anti-inflammatory agent (FN) NSAIDs Mass on left Kidney Drug Allergy Active REASON FOR VISIT Painful nail(s) aggrevated by shoes and causing difficulty standing/walking. Medications Medication SIG (Take, Route, Frequency, Duration) Notes Start Date End Date Status Cephalexin 500 MG 1 capsule Orally every 6 hrs for 10 day(s) Not-Taking Gabapentin 300 MG 1 capsule Orally Once a day for 30 day(s) Not-Taking buPROPion HCl ER (XL) Active Insulin 30 units night time Active Ciclopirox Olamine 0.77 % 1 application to affected area Externally Twice a day to effected areas on feet for 30 days Active Extra Depth Diabetic Shoes with 3 Pair Custom heat-molded multi-density innersoles for 1 year Dx: Active Simvastatin Active Trulicity Not-Taking Ozempic Active Social History Tobacco Use: [...] Are you an other tobacco user? No Vital Signs Weight 198 lbs 01/02/2024 BMI 31.95 kg/m2 01/02/2024 Encounters Encounter Location Date Provider Diagnosis [facility] [place] [address] [place] [phone] 01/02/2024 Blaise Bunch Ingrowing nail L60.0 ; Tinea unguium B35.1 ; Pain in right toe(s) M79.674 ; Pain in left toe(s) M79.675 and Type 2 diabetes mellitus with diabetic polyneuropathy E11.42 Assessments Encounter Date Diagnosis (ICD Code) Assessment Notes Treatment Notes Treatment Clinical Notes Section Notes 01/02/2024 Ingrowing nail (ICD-10 - L60.0) 01/02/2024 Tinea unguium (ICD-10 - B35.1) 01/02/2024 Pain in right toe(s) (ICD-10 - M79.674) 01/02/2024 Pain in left toe(s) (ICD-10 - M79.675) 01/02/2024 Type 2 diabetes mellitus with diabetic polyneuropathy (ICD-10 - E11.42) Plan Of Treatment Next Appt Details Follow Up: 3 Months, Reason: Provider Name:Alana Mendes brandi, 08/23/2024 10:00:00 AM, [facility] [address], [place], [address], Procedure Notes * Category Sub-Category Detail Notes [...] as necessary. Patient chooses, no pharmaceutical tx (39764) Keratoma Treatment Parring or Cutting o f Benign Hyperkeratotic Lesion(s) 31237 ( >4 Lesions) - The Benign hyperkeratotic lesions, as described above were pared, and/or cut utilizing a sterile #15 blade, tissue nippers, and/or dremel Progress Notes * Maria E WOOD IDOB:[birth year] (69 yo F)Acc No.[id number]:01/02/2024 Progress Note Patient:?Maria E WOOD I Provider:?Blaise Bunch DPM :1955???Age:68 Y???Sex:Female D ate:01/02/2024 Address:[address] [place] [address], [address], [facility] Pcp:Rosa Espino NP Subjective: * Chief Complaints: * ??? Painful nail(s) aggrevat ed by shoes and causing difficulty standing/walking. * HPI: ???Painful Nails:?Pt States Last PCP Visit:?Date:?11/25/2023 * ROS:?General/Constitutional:?Nausea?denies.?Vomiting?denies.?Hunger Thirst?denies.?Loss appetite?denies.?Chills?denies.?Fatigue?admits.?Fever?denies.?Night Sweats?denies.?Unexplained weight loss?denies.?Ophthalmologic:?Blurred vision?denies.?Red eye?denies.?HEENTM:?Dentures?denies.?Dizziness?denies.?Glasses/contacts?denies.?Retinopathy?de nies.?Blurred/double vision?denies.?TMJ?denies.?Discharge/drainage?denies.?Implants?denies.?Hard of hearing denies.?Difficulty chewing/swallowing/speaking?denies.?Nose bleeds?denies.?Sore mouth?denies.?Swollen glands?denies.?Respiratory:?On Oxygen?denies.?Pneumonia/pleurisy?denies.?Bronchitis?denies.?Emphysema?denies.?C oughing?denies.?Cough blood?denies.?Shortness of breath?denies.?Wheezing?denies.?Cardiovascular:?Pacemaker?denies.?MVP?denies.?WPW?denies.?CHF?denies.?Heart attack?denies.?Septal defect?denies.?Rapid beat?denies.?Chest pain ?denies.?Atrial Fib.?denies.?Murmur/Palpitations?denies.?Gastrointestinal:?Hemorrhoids?denies.?Stomach/Abdominal pain?denies.?Dark blood stool?denies.?Irritable bowel ?denies.?Constipation?denies.?Diarrhea?denies.?Vomiting?denies.?Hematology:?Swelling?admits.?Bruising?denies.?Bleeding problem?denies.?Genitourinary:?Blood urine?denies.?Frequent/Painfu/urination/bladder control?denies.?Kidney stones?denies.?Infection (UTI)?denies.?Nephropathy?denies.?Musculoskeletal:?Hammertoes?denies.?Bunions?denies.?Scoliosis/kyphosis?denies.?Muscle cramps / walking?denies.?Generalized aches and pains?admits.?Weakness?denies.?Integ.:?Rodriguez?denies.?Scars?denies.?Corns/calluses?admits.?Ingrown nails?denies.?Painful nails?denies.?Rashes?denies.?Neurologic:?Difficulty sleeping?admits.?Bipolar?admits.?Brain disorder?denies.?Balance trouble?admits.?Confusion?denies.?Fainting/blackouts?denies.?Headache?denies.?Tr emors?admits.? * Medical History:? * Surgical History:?lap band right toe surgery 14-15 years agoCarpal Tunnel Left Hand 09/07/15 * Hospitalization/Major Diagno stic Procedure:?[facility] ER Stomach pain, Lower back pain 06/09/15, 06/11/15Carpal Tunnel surgery left hand 09/07/15[facility] Endoscopy 04/03/18 * Family History:?Mother: dece ased, diagnosed with Family history of arthritis, Diabetic - NIDDM.?Father: unknown.?Daughter(s): alive.?Son(s): alive.?Siblings: , diagnosed with Diabetic [...] than smoking?Are you an other tobacco user??No ???Drugs/Alcohol:?Drugs?Have you used drugs other than those for medical reasons in the past 12 months??No ?Alcohol Screen?Did you have a drink containing alcohol in the past year??No ?Points?0 ?Interpretation?Negative ???Miscellaneous:?Caffeine: yes, frequency:, 1-2 cups per day. ?Children: yes, four. ?Exercise: yes, walking, treadmill. ?Marital status: . ?Occupation: disability. * Medications:?TakingInsulin , Notes to Pharmacist: 30 [...] Mass on left Kidneyyes[Allergies Verified] Objective: * Vitals:?Wt:198, BMI:31.95, S hoe size:9, BS:98, Ht-cm: 167.64 cm, Wt-k.81 kg. * ???Past Orders: ???Lab:HEMOGLOBIN A1C (GLYCO HEMOGLOBIN) (Order Date - 11/25/2023) (Collection Date & Time - 11/25/2023 01:29 PM) ? Value Reference Range ?HEMOGLOBIN A1C % (HH) 6.8 * Examination: ???Neurological: ?SENSORY:?exam demonstrates. reduced vibration [...] B/L.?Ophthalmology Referral: ?DIABETES EYE EXAM?Diabetic Retinopathy Screening:?Yes 07/2023 ?DIABETIC RETINOPATHY?Macular or Fundus exam:?Yes?General Examination: ?FOOT EXAM:?Lower Extremity Neurological Exam performed:?Yes ?Date?01/02/2024??? Assessment: * Assessment: 1.?Ingrowing nail - L60.0 [...] as necessary. Patient chooses, no pharmaceutical tx (06441).?Keratoma Treatment:?Parring or Cutting of Benign Hyperkeratotic Lesion(s)?52095 ( >4 Lesions) - The Benign hyperkeratotic lesions, as described above were pared, and/or cut utilizing a sterile #15 blade, tissue nippers, and/or dremel.? * Procedure Codes:?63777 DEBRI DE NAIL, 6 OR MORE, Modifiers: XS 70360 TRIM SKIN LESIONS, OVER 4, Modifiers: XS * Follow Up:?3 Months * Images: * Sign off status: Completed true * Provider:?Blaise Bunch DPM Date:? 024 Generated for Printi ng/Faxing/eTransmitting on:?08/15/2024 09:48 AM EDT History and Physical Notes * HPI (History of Present Illness) Category Sub-Category Detail Notes Category Not es Painful Nails Pt States Last PCP Visit: Date:: 11/25/2023 Examination Category Sub-Category Detail Notes Category Not [...] T2, T3, T4, T6, T7, T8, T9 General Examination FOOT EXAM: Lower Extrem ity Neurological Exam performed:: Yes Date: 01/02/2024 Ophthalmology Referral DIABETES EYE EXAM Diabeti c Retinopathy Screening:: Yes 07/2023 DIABETIC RETINOPATHY Macular or Fundus exam:: Ye s Vascular DP PULSES (B): 2/4, B/L PT [...]
[2024-08-15 12:18] LABS: Anion Gap 11 (12-20); Blood Urea Nitrogen 10 mg/dL (9-16); Carbon Dioxide 28 mmol/L (22-29); Chloride 107 mmol/L (96-108); Estimated Glomerular Filt Rate > 60; Potassium 4.1 mmol/L (3.3-5.1); Sodium 142 mmol/L (135-145)
[2024-08-15 12:34] LABS: Creatinine Urine 56.81 mg/dL; Total Protein Urine Random < 7 mg/dL (<12)
== END 2024-08-15 09:20 | disposition home or self-care (01) ==
LOC: HO.WFDLDS 09:19
PROVIDERS: Visit Provider Internal Medicine Nephrology
DX: I10 Essential (primary) hypertension (principal)
CPT/HCPCS: 36415; 80051; 82565; 82570; 84156; 84520

== ENCOUNTER 2024-08-21 10:11 | Outpatient (AMB) | payer MEDICARE, OTHER, MEDICAID, SELFPAY ==
--- NOTE | 2024-08-21 10:28 | HO.NEPHOV_ITS ---
Vital Signs 08/21/24 10:30 Height 5 ft 6 in Weight 199 lb 8 oz BMI 32.2 BP 120/60 Blood Pressure Location Rt brachial Position Sitting Pulse 61 Pulse Source Pulse Oximeter Pulse Oximetry (%) 97 Oxygen Delivery Method Room Air Intake Visit Reasons: Hypertension-LVM Surgical Dressing Maker Required: No Accompanied by: Self / Same As Patient Allergies No Known Allergies Allergy (Verified 08/21/24 10:29) HPI Comments Details: I had the delight of seeing Maria E with a history of hypertension. She had pain left flank and was seen in [facility]. She has lost some weight and night sweats for 2 months which she is concerned. She is on Ozempic. She does not have any nausea, vomiting, fever, chills, rigors. She is a diabetic. She was on SHERLEY inhibitor which stopped due to low BPl. She has no orthostatic symptoms. Her EKG in the past has not shown any significant left ventricular hypertrophy. She has not known to have significant proteinuria or retinopathy. She maintains good hydration and tries to avoid nonsteroidal anti-inflammatories on a regular basis. She also has history of adrenal adenoma which had been non functioning. She has strong family history of ESRD(2 brothers and mother). She had cystoscopy in the past and was negative as per the patient. [facility] Medical History Thyroid nodule RLS (restless legs syndrome) Wears hearing aid Meralgia paresthetica of left side Bursitis Essential tremor Chronic pain syndrome CTS (carpal tunnel syndrome) Adrenal adenoma DJD (degenerative joint disease) GERD (gastroesophageal reflux disease) Tobacco use Bilateral cataracts Arthritis Heartburn Hypertension Hyperlipidemia BETHANIE on CPAP Obesity Diabetes Surgical History Hx of laparoscopic gastric banding History of History of esophagogastroduodenoscopy (EGD) Hx of colonoscopy Hx of laparoscopic gastric banding Social History Patient Tobacco Use Status: Current everyday Tobacco user Tobacco use type: Cigarette Cigarettes Per Day: 7 Review of Systems Const All systems reviewed & are unremarkable except as noted in HPI and below Physical Exam Vital Signs: Last Vital Signs Pulse 61 08/21/24 10:30 BP 120/60 08/21/24 10:30 Pulse Ox 97 08/21/24 10:30 Oxygen Delivery Method Room Air 08/21/24 10:30 BMI result Body Mass Index 32.2 Const General: comfortable and no acute distress HEENT Head: Yes normocephalic Mouth: Normal oral and palatal mucosa present Eyes EOM: EOMs intact bilaterally Neck Neck: Yes supple Resp Auscultation: clear to auscultation bilaterally Cardio Jugular venous distension: no JVD Rate: regular rate GI Palpation (GI): Soft to palpation Auscultation: normal bowel sounds General: Yes no CVA tenderness Back/Spine/Pelvis Back: no CVA tenderness Skin General skin exam: no rashes or lesions noted Neuro General: moves all extremities Extrem General: Yes no pedal edema Results Reviewed Nephrology Results: Sodium 142 mmol/L (135-145) 08/15/24 Potassium 4.1 mmol/L (3.3-5.1) 08/15/24 Chloride 107 mmol/L (96-108) 08/15/24 Carbon Dioxide 28 mmol/L (22-29) 08/15/24 BUN 10 mg/dL (9-16) 08/15/24 Creatinine 0.79 mg/dL (0.5-1.4) 08/15/24 Urine Creatinine 56.81 mg/dL 08/15/24 Protein/Creatinin Ratio TNP 08/15/24 Assessment & Plan Assessment & Plan (1) Hypertension: Code(s): I10 - Essential (primary) hypertension Category: Medical Qualifiers: Hypertension type: primary hypertension Qualified Code(s): I10 - Essential (primary) hypertension Plan Maria E has longstanding hypertension. Her blood pressure is currently well controlled. She has a diabetic. She was on SHERLEY-inhibitor which was stopped due to low BP( which was happening with weight loss). She is not known to have sig nificant left ventricular hypertrophy or proteinuria. She is compliant with her medications. Her last urinalysis was unremarkable. She is a great candidate for SGLT2 i. I did not make any medication changes today. Answered all questions. Follow-up appointment given Orders: Orders Blood Urea Nitrogen 6 Months I10 - Essential (primary) hypertension Electrolytes 6 Months I10 - Essential (primary) hypertension Creatinine 6 Months I10 - Essential (primary) hypertension Protein Creatinine Ratio, Ur 6 Months I10 - Essential (primary) hypertension Coding Level of Care Code Est Pt Level 4 (37895) Diagnoses Primary hypertension I10 Hypertension type: primary hypertension
[2024-08-21 10:30] VITALS: BP 120/60; PULSE 61; O2SAT 97; BMI 32.2
--- OUTSIDE RECORDS SUMMARY | 2024-08-21 11:28 | XMS_ITS | Patient Health Record ---
Author Organization [facility] [place] Address [address] [place] [address] Care Team Providers Care Enthone Solder Stripper Name Role Phone Kenzie CAZARES, Rosa Primary Care Provider Blaise Abbott Unavailable [phone] Alana Culp Unavailable [phone] Allergies Allergen (clinical drug ingredient) Drug/Non Drug [...] Problem Acquired hammer toe of right foot (4807711760644817 ) Other hammer toe(s) (acquired), right foot (M20.41) Active confirmed Problem Acquired hammer toe of left foot (9888978128041131 ) Other hammer toe(s) (acquired), left foot (M20.42) Active confirmed Problem Polyneuropathy due to diabetes mellitus type I (658433452) Type 1 diabetes mellitus with diabetic polyneuropathy (E10.42) Active confirmed Problem Polyneuropathy due to type 2 diabetes mellitus (353563850) Type 2 diabetes mellitus with diabetic polyneuropathy (E11.42) Active confirmed Vital Signs Height 5ft6in in 04/05/2024 Weight 204 lbs 04/05/2024 BMI 32.92 kg/m2 04/05/2024 Procedures Procedure Date Ordered Date Performed Result Body Sit e 57541-YCATTWZ NAIL, 6 OR MORE 04/05/2024 N/A 95162-VNJB SKIN LESIONS, 2 TO 4 04/05/2024 N/A Encounters Encounter Location Date Provider Diagnosis [facility] [address] 08/22/2023 Blaise Bunch Ingrowing nail L60.0 ; Tinea unguium B35.1 ; Pain in right toe(s) M79.674 ; Pain in left toe(s) M79.675 and Type 2 diabetes mellitus with diabetic polyneuropathy E11.42 [facility] [address] [place] [address] 01/02/2024 Blaise Bunch Ingrowing nail L60.0 ; Tinea unguium B35.1 ; Pain in right toe(s) M79.674 ; Pain in left toe(s) M79.675 and Type 2 diabetes mellitus with diabetic polyneuropathy E11.[address] [address] 04/05/2024 Alana Culp Other hammer toe(s) (acquired), right foot M20.41 ; Other hammer toe(s) (acquired), left foot M20.42 ; Type 2 diabetes mellitus with diabetic polyneuropathy E11.42 and Tinea unguium B35.[address] [address] 11/10/2023 Blaise Bunch [address] [address] 12/13/2023 Blaise Bunch Assessments Encounter Date Diagnosis [...] Treatment Pending Test Test Name Order Date 70574-BBDVDXD NAIL, 6 OR MORE 02/18/2014 37540-UTEBZKC NAIL, 6 OR MORE 06/20/2014 19228-GVTKYRS NAIL, 6 OR MORE 09/19/2014 60775-ZWKVUWY NAIL, 6 OR MORE 12/12/2014 63078-ZCAAMAZ NAIL, 6 OR MORE 03/13/2015 05321-JEQQMAD NAIL, 6 OR MORE 06/16/2015 39600-DSJROUD NAIL, 6 OR MORE 09/08/2015 52002-BNJKQMS NAIL, 6 OR MORE 01/15/2016 50472-IHCMANH NAIL, 6 OR MORE 05/17/2016 03624-HFAKILH NAIL, 6 OR MORE 01/17/2017 49678-WFECPQL NAIL, 6 OR MORE 04/21/2017 10028-UTYVHKW NAIL, 6 OR MORE 07/18/2017 29334-WYQHUHP NAIL, 6 OR MORE 04/24/2018 76979-ROMYOVC NAIL, 6 OR MORE 10/24/2017 86442-SRGNBYA NAIL, 6 OR MORE 01/23/2018 05154-JFAWWRH NAIL, 6 OR MORE 04/05/2024 72456-Uaicmwqi Plate 04/24/2018 33689-Eawyclmv Plate 09/12/2017 63508-Lsvbjbcy Plate 07/18/2017 70016-Zwdeeeiu Plate 02/18/2014 14009- Debride <25 sq cm 03/04/2014 06191- Debride <25 sq cm 08/01/2017 50914-VIXP SKIN LESIONS, OVER 4 07/19/19 18 57193-QRDZ SKIN LESIONS, OVER 4 04/21/20 17 75628-ULSX SKIN LESIONS, OVER 4 05/17/19 17 33304-CJVP SKIN LESIONS, OVER 4 09/14/19 17 61600-ETWF SKIN LESIONS, OVER 4 01/18/20 17 82898-OLSN SKIN LESIONS, OVER 4 01/15/20 16 43793-WZZC SKIN LESIONS, OVER 4 09/08/19 16 68779-XNUQ SKIN LESIONS, OVER 4 06/20/19 15 30316-WRPE SKIN LESIONS, OVER 4 02/19/20 14 04999-CVJP SKIN LESIONS, OVER 4 06/16/19 16 33382-XKQY SKIN LESIONS, OVER 4 03/13/20 15 22700-DSZQ SKIN LESIONS, OVER 4 12/13/19 15 21583-QPHB SKIN LESIONS, OVER 4 09/20/19 15 04397-TPZG SKIN LESIONS, OVER 4 10/25/19 18 09222-KWPT SKIN LESIONS, OVER 4 01/24/20 18 57619-GCYV SKIN LESIONS, OVER 4 04/24/20 18 68917-CNJX SKIN LESIONS, OVER 4 08/22/19 19 70421-PIQD SKIN LESIONS, OVER 4 12/01/19 19 95652-OUEL SKIN LESIONS, OVER 4 03/26/20 19 44588-HXFG SKIN LESIONS, OVER 4 07/19/19 20 31502-AFOQ SKIN LESIONS, OVER 4 11/05/19 20 35166-CAWS SKIN LESIONS, OVER 4 02/14/20 20 91038-NCSK SKIN LESIONS, OVER 4 05/22/19 21 39147-DUEO SKIN LESIONS, OVER 4 08/22/19 21 86009-JQSP SKIN LESIONS, OVER 4 11/25/19 21 71000-GSDO SKIN LESIONS, OVER 4 02/24/20 21 70556-KHVM SKIN LESIONS, OVER 4 05/25/19 22 04352-ACEZ SKIN LESIONS, OVER 4 08/25/19 22 08693-CFHP SKIN LESIONS, 2 TO 4 04/05/20 24 Next Appt Details Provider Name:Alana paz, 08/23/2024 10:00:00 AM, [address] [facility], [facility] [address], [place], [address], Insurance Providers Payer Name Payer Address Payer Phone Subscriber Number Group Number Insured Name Patient Relationship to Insured Coverage Start Date Coverage End Date Medicare National [employer]t [employer] [address] [place] [phone] [id number] Maria E Wood Self - patient is the insured [employer] [address] [place] [phone] [id number] Jordan Wood Spouse - patient is the [...]
--- OUTSIDE RECORDS SUMMARY | 2024-08-21 11:28 | XMS_ITS ---
Author Organization [facility] [place] Address [address] [place] [address] Care Team Providers Care Tamale Machine Feeder Name Role Phone Kenzie CAZARES, Rosa Primary Care Provider Blaise Abbott Unavailable [phone] Allergies Allergen (clinical drug ingredient) Drug/Non Drug [...] 01/02/2024 Encounters Encounter Location Date Provider Diagnosis [facility] [place] [address] [place] [address] 01/02/2024 Blaise Bunch Ingrowing nail L60.0 ; [...] Provider Name:Alana Mendes brandi, 08/23/2024 10:00:00 AM, [facility] [address], [place], [address], Procedure Notes * Category Sub-Category Detail Notes [...] as necessary. Patient chooses, no pharmaceutical tx (92745) Keratoma Treatment Parring or Cutting o f Benign Hyperkeratotic Lesion(s) 33035 ( >4 Lesions) - The Benign hyperkeratotic lesions, as described above were pared, and/or cut utilizing a sterile #15 blade, tissue nippers, and/or dremel Progress Notes * Maria E WOOD IDOB:[birth year] (69 yo F)Acc No.[id number]:01/02/2024 Progress Note Patient:?Maria E WOOD I Provider:?Blaise Bunch DPM :1955???Age:68 Y???Sex:Female D ate:01/02/2024 Address:[address] [place] [address], [address], [facility] Pcp:Rosa Espino NP Subjective: * Chief Complaints: [...] as necessary. Patient chooses, no pharmaceutical tx (44615).?Keratoma Treatment:?Parring or Cutting of Benign Hyperkeratotic Lesion(s)?24426 ( >4 Lesions) - The Benign hyperkeratotic lesions, as described above were pared, and/or cut utilizing a sterile #15 blade, tissue nippers, and/or dremel.? * Procedure Codes:?14203 DEBRI DE NAIL, 6 OR MORE, Modifiers: XS 71184 TRIM SKIN LESIONS, OVER 4, Modifiers: XS * Follow Up:?3 Months * Images: * Sign off status: Completed true * Provider:?Blaise Bunch DPM Date:? 024 Generated for Printi ng/Faxing/eTransmitting on:?08/21/2024 11:28 AM EDT History and Physical Notes * [...]
--- OUTSIDE RECORDS SUMMARY | 2024-08-21 11:28 | XMS_ITS | Clinical Summary ---
Author Organization [facility] Address [address] [place] [address] Phone Care Team Providers Care Hospital Nursing Assistant Name Role Phone Dave Mast MD Primary [...] Exam 03/31/2023 Diabetes: Visual Foot Exam 03/31/2023 Diabetes: Hemoglobin A1C 03/13/2024 024, 07/16/2020 Influenza Vaccine (Season Ended) 2025 Hepatitis B Vaccine Aged Out No longe r eligible based on patient's age to complete this topic Procedures Procedure Name Priority Date/Time Associated Diagnosis Comments HEMOGLOBIN A1C Routine 12/12/2023 7:53 AM EDT from Last 3 Months or Most Recently Relevant to Health Maintenance Results * (ABNORMAL) Hemoglobin A1c (12/12/2023 7:53 AM EDT) Hemoglobin A1C 7.0(H) 4.8 - 5.6 % [facility] Comment: ? Prediabetes: 5.7 - 6.4 ? Diabetes: >6.4 ? Glycemic control for adults with diabetes: <7.0 12/12/2023 7:53 AM EDT 12/12/2023 Johnathon Nash MD LAB BLOOD ORDERABLES Karuna bledsoe Result [facility] [address] [place] [address] from Last 3 Months or Most Recently Relevant to Health Maintenance [place] Care Teams Hospital Nursing Assistant Relationship Specialty Start Date End Date Dave Mast MD [address], [place] PCP - General Internal Medicine 03/31/23
--- OUTSIDE RECORDS SUMMARY | 2024-08-21 11:28 | XMS_ITS ---
[facility] Organization [facility] [place] Address [address] [place] [address] Care Team Providers Care Aeronautics Teacher Name Role Phone Kenzie CAZARES, Rosa Primary Care Provider Blaise Abbott Unavailable [phone] REASON FOR VISIT Painful nail(s) aggrevated by shoes and causing difficulty standing/walking. Encounters Encounter Location Date [facility] [address] [address] 12/15/2023 Blaise Bunch Ingrowing nail L60.0 ; [...] Provider Name:Alana paz, 08/23/2024 10:00:00 AM, [address] [address], [place], [address], Procedure Notes * Category Sub-Category Detail Notes [...] as necessary. Patient chooses, no pharmaceutical tx (34688) Keratoma Treatment Parring or Cutting o f Benign Hyperkeratotic Lesion(s) 11437 ( >4 Lesions) - The Benign hyperkeratotic lesions, as described above were pared, and/or cut utilizing a sterile #15 blade, tissue nippers, and/or dremel Progress Notes * Maria E WOOD IDOB:[birth year] (69 yo F)Acc No.[id number]:12/15/2023 Progress Note Patient:?Maria E WOOD I Provider:?Blaise Bunch DPM :1955???Age:68 Y???Sex:Female D ate:12/15/2023 Address:[address] [place] [address], [address] [place], [place] [address] Pcp:Rosa Espino NP Subjective: * Chief Complaints: [...] as necessary. Patient chooses, no pharmaceutical tx (27188).?Keratoma Treatment:?Parring or Cutting of Benign Hyperkeratotic Lesion(s)?38674 ( >4 Lesions) - The Benign hyperkeratotic lesions, as described above were pared, and/or cut utilizing a sterile #15 blade, tissue nippers, and/or dremel.? * Procedure Codes:?59496 DEBRI DE NAIL, 6 OR MORE, Modifiers: XS , 29796 TRIM SKIN LESIONS, OVER 4, Modifiers: XS * Follow Up:?3 Months * Images: * The named appointment provid er may or may not be the originator of this progress note, and it is not deemed complete until electronically signed by the appointment provider. Sign off status: Pending * Provider:?Blaise Bunch DPM Date:? 024 Generated for Tommy flowers/Bob/Olivia on:?08/21/2024 11:28 AM EDT History and Physical [...]
--- OUTSIDE RECORDS SUMMARY | 2024-08-21 11:28 | XMS_ITS | Data Portability ---
Author Organization [facility] [address] Address [address] [place] [phone] Assessment No assessment recorded. Plan of Treatment Reminders Order Date Submit Date Provider Last Modified By Organization Details Last Modified Time Details Appointments None recorded. Lab SARS CoV 2 (COVID-19) Ag, QL, IA, upper respiratory specimen 2023 024 [email or web address] 247 [facility] [address] [place], [address], 4 11:36:23 rapid strep group A, throat 2023 024 [email or web address] 247 [facility] [address] [place], [address], 4 11:36:24 Referral None recorded. Procedures None recorded. Surgeries None recorded. Imaging None recorded. Medication Orders albuterol sulfate 2.5 mg/3 mL (0.083 %) solution for nebulizatio n 2023 024 [email or web address] Not available 4 11:36:16 albuterol sulfate HFA 90 mcg/actuati on aerosol inhaler 2023 024 [facility][id number], [address] [place], [address], 4 11:40:03 prednisone 20 mg tablet 2023 024 [facility] #0838, [address] [place], [address], 11:40:02 doxycycline hyclate 100 mg capsule 2023 024 [facility][id number], [address] [place], [address], 11:40:01 Patient TargetsNo targets recorded. Patient Instructions Encounter Date Encounter Id Patient Instructions Last Modified By Organization Details Last Modified Time 02/02/2024 [id number] peak flow* [email or web address] Not available 0 02/02/2024 11:36:25 How to use the Aerochamber Attach the inhaler to the chamber Harmony 2 puffs in to the chamber Put the chamber in your mouth with you lips closed around it Take 3 separate breaths from the chamber. Don't breath into the chamber. Follow-up with your doctor if no improvement in 1 week. Seek Emergency Medical evaluation for any worsening symptoms. [email or web address] Not available 02/02/2024 11:39:52 Reason for Referral None Reported. Results Created Date Observation Date Name Description Value Unit Range Abnormal Flag Note LastModifiedBy Organization Detail LastModifiedTime 02/02/20 24 02/02/2024 peak flow* Pre (L/min) 170 Not Available [address], [address], 02/02/2024 11:07:04 02/02/20 24 02/02/2024 peak flow* Post (L/min) 240 Not Available [address], [address], 02/02/2024 11:07:04 02/02/20 24 02/02/2024 peak flow* Pulse 79 Not Available [address], [address], 02/02/2024 11:07:04 02/02/20 24 02/02/2024 peak flow* Oxygen Saturation 98 Not Available [address], [address], 02/02/2024 11:07:04 02/02/20 24 02/02/2024 SARS CoV 2 (COVI D-19) Ag, QL, IA, upper respi rator y speci men Unknown Analyte negati ve Not Available [email or web address] [address] [place] [address], [address], 02/02/2024 10:22:42 02/02/20 24 02/02/2024 SARS CoV 2 (COVI D-19) Ag, QL, IA, upper respi rator y speci men Unknown Analyte yes Not Available [address] [place], [place] [address] [address] [place] [address], [address], 02/02/2024 10:22:42 02/02/20 24 02/02/2024 rapid strep group A, throa t Unknown Analyte negati ve Not Available [address] [place], [place] [address], [address], 02/02/2024 10:23:28 02/02/20 24 02/02/2024 rapid strep group A, throa t Unknown Analyte yes Not Available [address] [place] [address], [address], 02/02/2024 10:23:28 Result Notes None recorded. Problems Name Problem SNOMED Code Status Onset Date Resolution Date Notes Provider Name and Address Organization Details Recorded Time Diabetes mellitus 19005172 Active Lenore Garcia null, [place] - [facility] 4 10:21:16 Depressive disorder 02973485 Active Lenore Garcia null, [place] - [facility] 4 10:21:24 Anxiety 39639324 Active [facility] null, [facility] - [facility] [...] Updated DateTime 4 167.64 cm 32.9 kg/m2 19749.8 4 g 98 % 98 % 5 71 /min 17 /min 98.5 [degF] 130 mm[Hg] 83 mm[Hg] Lenore HARRINGTON - [facility] 4 10:19:01 Social History Question Answer Notes LastModified by Organizat ion Details LastModified Time Tobacco Smoking Status Current Some Day Smoker Lenore duvall [place] [facility] 02/02/2024 10:22:12 What Is Your Level Of Alcohol Consumption? None [email or web address] Information not available 02/02/2024 Are You Currently Employed? No Retired Information not available 02/02/2024 Have You Had A Flu Shot This Season? No Information not available 02/02/2024 If No, Would You Like A Flu Shot Today? No [email or web address] Information not available 02/02/2024 What Is Your Relationship Status? [email or web address] Information not available 02/02/2024 Do You Use Any Illicit Or Recreational Drugs? No [email or web address] Information not available 02/02/2024 Have You Recently Traveled Abroad? No [email or web address] Information not available 02/02/2024 Do You Or Have You Ever Used Any Other Forms Of Tobacco Or Nicotine? No [email or web address] Information not available 02/02/2024 Sex: Unknown Functional [...] SNOMED-CT Code Diagnosis ICD10 Code Diagnosis Note [id number] [address] [facility] [address] [place] [address] 08/22/2019 09:36:16 08/22/2019 09:56:32 [id number] [place] [address] [address] 02/02/2024 09:51:56 02/02/2024 11:40:57 Persistent cough 066752417 R05.3 Acute bron chitis with bronchospasm 68791280 J20.9 Health Concerns Section Related Observation LastModified by Organization Detai ls LastModified Time None Recorded Concern Status LastModified by Organization Details LastModified Time None Recorded Advance Directives Directive None Recorded Payers Encounter Date Sequence Insurance Name Policy Number Policy Echeverria Covered Member ID Echeverria Member ID Guarantor Name 08/22/2019 1 MEDICARE B-[place]: [facility] [employer] Maria E I [place] [id number] Maria E Wood 08/22/2019 1 [place] E [place] [id number] Maria E Wood 02/02/2024 1 [place] Maria E Wood [id number] Maria E Wood 02/02/2024 2 [place] [employer] Maria E I [place] [id number] Maria E Wood Notes Date Note Type [...] no other associated sxs. RIGOBERTO DAVID MD [address] [place] [address] [place], [address], [place] - [facility] 02/02/2024 11:41:17 OBGyn Episode No OBEpisode recorded.
--- OUTSIDE RECORDS SUMMARY | 2024-08-21 11:28 | XMS_ITS ---
Author Organization [facility] Tiffanie ho Fredy Address [address] [place] [address] Care Team Providers Care Sketch Artist Name Role Phone Kenzie CAZARES, Rosa Primary Care Provider Blaise Abbott Unavailable [phone] Alana Culp Unavailable [phone] Allergies Allergen (clinical drug ingredient) Drug/Non Drug [...] Problem Acquired hammer toe of right foot (6461362114478279 ) Other hammer toe(s) (acquired), right foot (M20.41) Active confirmed Problem Acquired hammer toe of left foot (2368086496125071 ) Other hammer toe(s) (acquired), left foot (M20.42) Active confirmed Problem Polyneuropathy due to diabetes mellitus type I (081731566) Type 1 diabetes mellitus with diabetic polyneuropathy (E10.42) Active confirmed Vital Signs Height 5ft6in in 04/05/2024 Weight 204 lbs 04/05/2024 BMI 32.92 kg/m2 04/05/2024 Procedures Procedure Date Ordered Date Performed Result Body Sit e 12226-PLWCOCA NAIL, 6 OR MORE 04/05/2024 N/A 09230-ZBSP SKIN LESIONS, 2 TO 4 04/05/2024 N/A Encounters Encounter Location Date Provider Diagnosis [facility] [address] [address] 04/05/2024 Alana Robbi Other hammer toe(s) (acquired), [...] INSTRUCTIONS.pdf) Pending Test Test Name Order Date 97229-TJUDDHF NAIL, 6 OR MORE 04/05/2024 10015-QBEJ SKIN LESIONS, 2 TO 4 04/05/20 24 Next Appt Details Follow Up: prn, Reason: Provider Name:Alana Mendes brandi, 08/23/2024 10:00:00 AM, [address] [facility], [address], [place], [address], Procedure Notes * Category Sub-Category Detail Notes [...] use of a nail nipper and/or dremel-type grinder gear, to a more viable healthy nail plate [...] to maintain effectiveness in symptomatic relief - 52239 Keratoma Treatment Parring or Cutting o f Benign Hyperkeratotic Lesion(s) (-56) 2-4 Lesions - The Benign hyperkeratotic lesions, ( 2 ) in total, locations as stated and described in exam, were pared, and/or cut utilizing a sterile 15 blade, tissue nippers, and/or power dremel instrumentation - 90391 Progress Notes * Maria E WOODB:[birth year] (69 yo F)Acc No.[id number]:04/05/2024 Progress Note Patient:?Maria E WOOD I Provider:?Alana Culp DPM :1955???Age:69 Y???Sex:Female D ate:04/05/2024 Address:[address] [place] [address], [address] [place], [place] [address] Pcp:Rosa Espino NP Subjective: * Chief Complaints: [...] 2.?Type 2 diabetes mellitus with diabetic polyneuropathy?Procedure: 92307-TUUXQMW NAIL, 6 OR MORE * Procedures:?Debride Nail [...] use of a nail nipper and/or dremel-type grinder gear, to a more viable healthy nail plate [...] to maintain effectiveness in symptomatic relief - 55521.?Keratoma Treatment:?Parring or Cutting of Benign Hyperkeratotic Lesion(s)?(-56) 2-4 Lesions - The Benign hyperkeratotic lesions, ( 2 ) in total, locations as stated and described in exam, were pared, and/or cut utilizing a sterile 15 blade, tissue nippers, and/or power dremel instrumentation - 41047.? * Procedure Codes:?87629 DEBRI DE NAIL, 6 OR MORE, Modifiers: XS 79819 TRIM SKIN LESIONS, 2 TO 4, Modifiers: [...] Culp DPM Date:?06/05/2023 Generated for Tommy flowers/Bob/Dianitting on:?08/21/2024 11:28 AM EDT History and Physical [...]
== END 2024-08-21 10:47 | disposition home or self-care (01) ==
LOC: HO.HKA 10:11
PROVIDERS: PCP Internal Medicine; Visit Provider Internal Medicine Nephrology
DX: I10 Essential (primary) hypertension (principal)
CPT/HCPCS: 99214

== ENCOUNTER → 2024-08-21 10:11 | Outpatient (BNVA) | payer MEDICARE, OTHER, MEDICAID, SELFPAY | PROVIDERS: PCP Internal Medicine; Visit Provider Internal Medicine Nephrology | DX: I10 Essential (primary) hypertension (principal) | CPT/HCPCS: 99212 ==